=== PATIENT | female | born 1980 | race Hispanic/Latino ===

== ENCOUNTER 2016-04-15 08:05 | Emergency (ER) | payer SELFPAY ==
[2016-04-15 08:25] VITALS: TEMP 99.1
--- NOTE | 2016-04-15 08:30 | ED.PDOC ---
History of Present Illness - General Chief Complaint: Abdominal Pain Stated Complaint: abdominal discomfort Time Seen by Provider: 04/15/16 08:20 Information Source: patient, RN notes reviewed, Vital Signs reviewed Exam Limitations: no limitations - History of Present Illness Initial Comments: This 35 y/o female stated that after coming out from the rest room had bowel movement and urination she had onset of crampy abdominal pain mostly suprapubic area and radiating to right side and back felt nauseated ,denies blood in stool or urine.No dysuria or pain on defacation.No vaginal discharge ,no history of sexually transnitted infection. Abdominal Pain Onset Location: suprapubic Pain Radiation: RLQ, back Quality: cramping, steady Timing/Duration: 1/2 hour Improving Factors: nothing Worsening Factors: nothing Associated Symptoms: denies symptoms Review of Systems - Review of Systems Constitutional: States: no symptoms reported EENTM: States: no symptoms reported Respiratory: States: no symptoms reported Cardiology: States: no symptoms reported Gastrointestinal/Abdominal: States: see HPI Genitourinary: States: no symptoms reported Musculoskeletal: States: no symptoms reported Neurological: States: no symptoms reported Endocrine: States: no symptoms reported Hematologic/Lymphatic: States: no symptoms reported Past Medical History (General) - Patient Medical History Hx Seizures: No Hx Stroke: No Hx Dementia: No Hx Asthma: No Hx of COPD: No Hx Cardiac Disorders: No Hx Congestive Heart Failure: No Hx Pacemaker: No Hx Hypertension: No Hx Thyroid Disease: No Hx Diabetes: No Hx Gastroesophageal Reflux: No Hx Renal Disease: No Hx Cancer: No Hx of HIV: No Hx Hepatitis C: No Hx MRSA: No Hx Other PMH: Yes - stated diagnnosed with ovarian cyst Surgical History: other - vaginal deliveries - Vaccination History Hx Tetanus, Diphtheria Vaccination: No Hx Influenza Vaccination: No Hx Pneumococcal Vaccination: No - Social History Hx Tobacco Use: Yes Hx Chewing Tobacco Use: No Hx Alcohol Use: Yes - daily until 2 weeks ago Hx Substance Use: Yes - THC Hx Substance Use Treatment: No Hx Depression: No Hx Physical Abuse: No Hx Emotional Abuse: No Hx Suspected Abuse: No - Activities of Daily Living Patient Lives Alone: No - family - Female History Patient : No Family Medical History - Family History Mother Family History: Unknown Hx Family Asthma: Yes - dad Hx Family Hypertension: Yes - dad Father Living Status: Still Living Hx Family Asthma: Yes Hx Family Hypertension: Yes Physical Exam - Physical Exam General Appearance: Alert, Anxious, No apparent distress Eyes, Ears, Nose, Throat Exam: PERRL/EOMI, normal ENT inspection, TMs normal, pharynx normal Neck: non-tender, full range of motion, supple Respiratory: chest non-tender, lungs clear, normal breath sounds, no respiratory distress Cardiovascular/Chest: normal peripheral pulses, regular rate, rhythm, no edema, no gallop, no JVD, no murmur Peripheral Pulses: No deficit Gastrointestinal/Abdominal: normal bowel sounds, soft, tenderness - suprapubic and rlq no peritoneal signs Back Exam: normal inspection, no CVA tenderness, no vertebral tenderness Extremity: non-tender, normal inspection, no pedal edema Neurologic: no motor/sensory deficits, alert, normal mood/affect, oriented x 3 Skin Exam: normal color, warm/dry Lymphatic: no adenopathy Progress - Results/Orders Results/Orders: 04/15/16 08:36 HCG,QUALITATIVE URINE Stat 04/15/16 09:04 EKG Assessment ONCE 04/15/16 09:12 INFLUENZA A & B BY PCR Stat Laboratory Results WBC 9.3 K/mm3 (4.8-10.8) 04/15/16 08:50 RBC 4.05 M/mm3 (4.20-5.40) L 04/15/16 08:50 Hgb 13.1 gm/dL (12.0-16.0) 04/15/16 08:50 Hct 38.7 % (36.0-47.0) 04/15/16 08:50 MCV 95.5 fl (81.0-99.0) 04/15/16 08:50 MCH 32.3 pg (27.0-31.0) H 04/15/16 08:50 MCHC 33.9 g/dL (33.0-37.0) 04/15/16 08:50 RDW 13.2 % (11.5-14.5) 04/15/16 08:50 Plt Count 264 K/mm3 (130-400) 04/15/16 08:50 MPV 7.3 fl (7.40-10.4) L 04/15/16 08:50 Absolute Neuts (auto) 6.60 K/uL (1.8-6.8) 04/15/16 08:50 Absolute Lymphs (auto) 1.70 K/uL (1.0-3.4) 04/15/16 08:50 Absolute Monos (auto) 0.70 K/uL (0.2-0.8) 04/15/16 08:50 Absolute Eos (auto) 0.20 K/uL (0.0-0.4) 04/15/16 08:50 Absolute Basos (auto) 0.00 K/uL (0.0-0.1) 04/15/16 08:50 Neutrophils % 71.3 % (42.0-78.0) 04/15/16 08:50 Lymphocytes % 18.1 % (20.0-50.0) L 04/15/16 08:50 Monocytes % 7.6 % (2.0-9.0) 04/15/16 08:50 Eosinophils % 2.6 % (1.0-5.0) 04/15/16 08:50 Basophils % 0.4 % (0.0-2.0) 04/15/16 08:50 Sodium 136 mmol/L (135-145) 04/15/16 08:50 Potassium 3.8 mmol/L (3.6-5.0) 04/15/16 08:50 Chloride 104 mmol/L (101-111) 04/15/16 08:50 Carbon Dioxide 22 mmol/L (21-31) 04/15/16 08:50 Anion Gap 13.8 (12-18) 04/15/16 08:50 BUN 17 mg/dL (7-18) 04/15/16 08:50 Creatinine 0.69 mg/dL (0.6-1.3) 04/15/16 08:50 BUN/Creatinine Ratio 24.6 (10-20) H 04/15/16 08:50 Random Glucose 95 mg/dL (70-105) 04/15/16 08:50 Serum Osmolality 273.3 mOsm/L (275-295) L 04/15/16 08:50 Calcium 9.3 mg/dL (8.4-10.2) 04/15/16 08:50 Total Bilirubin 0.5 mg/dL (0.2-1.0) 04/15/16 08:50 AST 24 IU/L (10-42) 04/15/16 08:50 ALT 21 IU/L (10-60) 04/15/16 08:50 Alkaline Phosphatase 74 IU/L (42-121) 04/15/16 08:50 Serum Total Protein 7.1 gm/dL (6.4-8.2) 04/15/16 08:50 Albumin 4.2 g/dl (3.2-5.5) 04/15/16 08:50 Globulin 2.9 gm/dL (2.3-3.5) 04/15/16 08:50 Albumin/Globulin Ratio 1.4 (1.1-1.9) 04/15/16 08:50 Lipase 18 U/L (22-51) L 04/15/16 08:50 Urine Color Yellow (Yellow) 04/15/16 08:15 Urine Appearance Clear (Clear) 04/15/16 08:15 Urine pH 5.5 (4.5-7.8) 04/15/16 08:15 Ur Specific [place] >= 1.030 (1.005-1.030) 04/15/16 08:15 Urine Protein Trace mg/dL 04/15/16 08:15 Urine Glucose (UA) Negative mg/dL (Negative) 04/15/16 08:15 Urine Ketones Negative mg/dL (NEGATIVE) 04/15/16 08:15 Urine Blood Trace-lysed (Negative) H 04/15/16 08:15 Urine Nitrite Negative 04/15/16 08:15 Urine Bilirubin Negative (NEGATIVE) 04/15/16 08:15 Urine Urobilinogen 0.2 mg/dL (0.2-1.0) 04/15/16 08:15 Ur Leukocyte Esterase Negative (Negative) 04/15/16 08:15 Urine RBC 0-1 /hpf 04/15/16 08:15 Urine WBC 0 /hpf 04/15/16 08:15 Ur Epithelial Cells 5-10 /hpf 04/15/16 08:15 Urine Bacteria 0 04/15/16 08:15 ABDOMINAL SONO- NO ACUTE ABNORMALITIES NOTED;CT abd/pelvis with contrast no acute abnormality noted Departure - Departure Clinical Impression: Abdominal pain, suprapubic Time of Disposition: 12:27 Disposition: Discharge to Home or Self Care Condition: Good Departure Forms: ED Discharge - Pt. Copy, Patient Portal Self Enrollment Instructions: DI for Abdominal Pain-Adult Prescriptions: Tramadol HCl 50 mg PO Q6HRS PRN #14 tab PRN Reason: Abdominal Cramping Dicyclomine HCl [Bentyl] 20 mg PO TID PRN #14 tab PRN Reason: Abdominal Cramping Home Medications: Ambulatory Orders Dicyclomine HCl [Bentyl] 20 mg PO TID PRN #14 tab 04/15/16 Tramadol HCl 50 mg PO Q6HRS PRN #14 tab 04/15/16 Additional Instructions: CLEAR LIQUIDS FOR TODAY THEN TO ADVANCE DIET TOLERATED;AVOID GREASY AND SPICY FOODS UNTIL BETTER;PLEASE EXCUSE FROM WORK 04/15- was ill;RETURN TO WORK WITHOUT RESTRICTIONS 04/17/2016.
[2016-04-15] MEDS ORDERED: SODIUM CHLORIDE 0.9% 10 ML VIAL ONE (08:59)
[2016-04-15] MEDS: LACTATED RINGERS 1,000 ML IVS ONE (09:20)
[2016-04-15] MEDS: MORPHINE SULFATE INJ 10 MG/ML VIAL IV ONE (09:20)
[2016-04-15] MEDS: PROMETHAZINE HCL INJ 25 MG/ML VIAL IM ONE (09:21)
--- NOTE | 2016-04-15 09:23 | US ---
EXAM DESCRIPTION: Abdomen sonogram CLINICAL HISTORY: Abdomen pain COMPARISON: None. FINDINGS: Gallbladder is normal . Gallbladder wall thickness 2 mm Common bile duct measures 4 mm in the fatemeh hepatis. Liver is normal in size and echotexture. No mass lesion Pancreas is normal. No duct dilation. Spleen normal measuring 7 cm craniocaudal. Visualized abdominal aorta and inferior vena cava are normal Right kidney and left kidney are normal in size and echotexture. No hydronephrosis, nephrolithiasis or renal mass lesion IMPRESSION: Normal abdomen sonogram Electronically signed by: Gustavo Wilson MD 04/15/2016 09:21
--- NOTE | 2016-04-15 11:47 | CT ---
EXAM DESCRIPTION: CT ABDOMEN PELVIS WITH IV CONTRAST CLINICAL HISTORY: pain COMPARISON: November 30, 2015. Abdomen ultrasound today TECHNIQUE: Post-contrast CT images of the abdomen and pelvis are obtained using standard imaging protocol. CT scan done according to ALARA (As Low As Reasonably Achievable). FINDINGS: Visualized lung bases show no acute findings. The liver, spleen comma pancreas, adrenal glands, gallbladder, and abdominal vasculature are unremarkable. Stomach is contracted and unremarkable. 12 mm cortical cyst of the lateral midpole right kidney with increased Hounsfield units suggesting proteinaceous or hemorrhagic cyst. No significant nephrolithiasis. No ureteral calcification or obstruction. Urinary bladder is unremarkable. The uterus and ovaries are unremarkable. Small amount of probably physiologic free fluid in the pelvic cul-de-sac. The appendix is normal. No small bowel obstruction or inflammation. Colon is unremarkable. No significant diverticular disease is appreciated. No free intraperitoneal air. Small fat containing umbilical hernia is stable. Osseous structures show no aggressive bony lesions. IMPRESSION: No acute findings on post-contrast CT of the abdomen and pelvis. Electronically signed by: Nikolai Patel MD 04/15/2016 11:45
[2016-04-15 12:26] VITALS: BP 126/84; O2SAT 96
== END 2016-04-15 12:53 | disposition home or self-care (01) ==
LOC: ER 08:05
DX: R10.30 Lower abdominal pain, unspecified (principal); Z87.891 Personal history of nicotine dependence
CPT/HCPCS: 36415; 74177; 76700; 80053; 81001; 81025; 83690; 85025; 87502; 93005; J2270; J2550; J7120

== ENCOUNTER 2016-06-22 16:53 | Emergency (ER) | payer SELFPAY ==
--- NOTE | 2016-06-22 18:03 | ED.PDOC ---
History of Present Illness - General Source: patient, RN notes reviewed, Vital Signs reviewed Exam Limitations: no limitations - History of Present Illness Initial Comments: Patient reports that this morning about 5:30am she started vomiting and not feeling well. As the day went on she developed pelvic pain that is worse than a period cramp. Pain is worsened by urinating, coughing or having a bowel movement. No fever. + chills. No further nausea or vomiting. No vaginal discharge or bleeding. Timing/Duration: intermittent - over past 12 hours Severity: moderate Improving Factors: nothing Worsening Factors: movement, other - coughing, urinating, bowel movement Associated Symptoms: fever/chills, malaise, nausea/vomiting <Pauline Chavez - Last Filed: 06/22/16 19:05> <Ling Elkins - Last Filed: 06/22/16 20:01> - General Chief Complaint: [employer]IVE [employer] REPA[employer]ER Problem Stated Complaint: vaginal pressure Time Seen by Provider: 06/22/16 17:52 - History of Present Illness Allergies/Adverse Reactions: Allergies NO KNOWN ALLERGY Allergy (Verified 06/22/16 17:51) Home Medications: Ambulatory Orders Hyoscyamine Sulfate [Levsin] 0.125 mg PO Q4H PRN #10 tab 06/22/16 Review of Systems - Review of Systems Constitutional: States: chills, malaise. Denies: diaphoresis, fever Respiratory: States: no symptoms reported Cardiology: States: no symptoms reported Gastrointestinal/Abdominal: States: see HPI Genitourinary: States: see HPI, pain. Denies: dysuria Musculoskeletal: States: no symptoms reported Skin: States: no symptoms reported Neurological: States: no symptoms reported. Denies: headache All other Systems: No Change from Baseline <Pauline Chavez - Last Filed: 06/22/16 19:05> Past Medical History (General) - Patient Medical History Hx Seizures: No Hx Stroke: No Hx Dementia: No Hx Asthma: No Hx of COPD: No Hx Cardiac Disorders: No Hx Congestive Heart Failure: No Hx Pacemaker: No Hx Hypertension: No Hx Thyroid Disease: No Hx Diabetes: No Hx Gastroesophageal Reflux: No Hx Renal Disease: No Hx Cancer: No Hx of HIV: No Hx Hepatitis C: No Hx MRSA: No Surgical History: other - Vaccination History Hx Tetanus, Diphtheria Vaccination: No Hx Influenza Vaccination: No Hx Pneumococcal Vaccination: No - Social History Hx Tobacco Use: Yes Hx Chewing Tobacco Use: No Hx Alcohol Use: Yes Hx Substance Use: Yes - THC Hx Substance Use Treatment: No Hx Depression: No Hx Physical Abuse: No Hx Emotional Abuse: No Hx Suspected Abuse: No - Activities of Daily Living Hospice Agency (if applicable):: None - Female History Patient is a Female of Child Bearing Age (10 -59 yrs old): No Patient : No <Pauline Chavez - Last Filed: 06/22/16 19:05> Family Medical History - Family History Mother Family History: Unknown Living Status: Still Living Hx Family Asthma: Yes - dad Hx Family Hypertension: Yes - dad Father Living Status: Still Living Hx Family Asthma: Yes Hx Family Hypertension: Yes <Pauline Chavez Last Filed: 06/22/16 19:05> Physical Exam - Physical Exam General Appearance: Alert, No apparent distress, Well Developed, Well Groomed, Well Hydrated, Well Nourished, Other - Uncomfortable Respiratory: chest non-tender, lungs clear, normal breath sounds, no respiratory distress, no accessory muscle use Cardiovascular/Chest: regular rate, rhythm, no gallop, no JVD, no murmur Gastrointestinal/Abdominal: normal bowel sounds, soft, no organomegaly, rebound - over RLQ, tenderness - RLQ and suprapubic Extremity: normal range of motion, non-tender, normal inspection Neurologic: no motor/sensory deficits, alert, normal mood/affect, oriented x 3 Skin Exam: normal color, warm/dry <KathyPauline - Last Filed: 06/22/16 19:05> Progress - Progress Progress: 06/22/16 19:[address] Elkins @ 1904 <KathyPauline Last Filed: 06/22/16 19:05> - Results/Orders Results/Orders: 06/22/16 17:42 Temperature 98.5 F Pulse Rate [ 75 pulse ox] Respiratory 20 Rate Blood Pressure 107/73 [Left Arm] O2 Sat by Pulse 94 L Oximetry 06/22/16 18:00 IV Care:Saline Lock per Protoc QSHIFT 06/22/16 18:01 Hold Metformin x 48Hrs [id number] Laboratory Results WBC 8.0 K/mm3 (4.8-10.8) 06/22/16 18:10 RBC 4.33 M/mm3 (4.20-5.40) 06/22/16 18:10 Hgb 14.4 gm/dL (12.0-16.0) 06/22/16 18:10 Hct 41.7 % (36.0-47.0) 06/22/16 18:10 MCV 96.3 fl (81.0-99.0) 06/22/16 18:10 MCH 33.2 pg (27.0-31.0) H 06/22/16 18:10 MCHC 34.5 g/dL (33.0-37.0) 06/22/16 18:10 RDW 12.9 % (11.5-14.5) 06/22/16 18:10 Plt Count 272 K/mm3 (130-400) 06/22/16 18:10 MPV 7.6 fl (7.40-10.4) 06/22/16 18:10 Absolute Neuts (auto) 5.20 K/uL (1.8-6.8) 06/22/16 18:10 Absolute Lymphs (auto) 2.00 K/uL (1.0-3.4) 06/22/16 18:10 Absolute Monos (auto) 0.60 K/uL (0.2-0.8) 06/22/16 18:10 Absolute Eos (auto) 0.10 K/uL (0.0-0.4) 06/22/16 18:10 Absolute Basos (auto) 0.00 K/uL (0.0-0.1) 06/22/16 18:10 Neutrophils % 65.0 % (42.0-78.0) 06/22/16 18:10 Lymphocytes % 24.7 % (20.0-50.0) 06/22/16 18:10 Monocytes % 8.1 % (2.0-9.0) 06/22/16 18:10 Eosinophils % 1.7 % (1.0-5.0) 06/22/16 18:10 Basophils % 0.5 % (0.0-2.0) 06/22/16 18:10 Sodium 136 mmol/L (135-145) 06/22/16 18:10 Potassium 3.7 mmol/L (3.6-5.0) 06/22/16 18:10 Chloride 103 mmol/L (101-111) 06/22/16 18:10 Carbon Dioxide 25 mmol/L (21-31) 06/22/16 18:10 Anion Gap 11.7 (12-18) L 06/22/16 18:10 BUN 8 mg/dL (7-18) 06/22/16 18:10 Creatinine 0.60 mg/dL (0.6-1.3) 06/22/16 18:10 BUN/Creatinine Ratio 13.3 (10-20) 06/22/16 18:10 Random Glucose 94 mg/dL (70-105) 06/22/16 18:10 Serum Osmolality 270.0 mOsm/L (275-295) L 06/22/16 18:10 Calcium 9.4 mg/dL (8.4-10.2) 06/22/16 18:10 Total Bilirubin 0.6 mg/dL (0.2-1.0) 06/22/16 18:10 AST 23 IU/L (10-42) 06/22/16 18:10 ALT 21 IU/L (10-60) 06/22/16 18:10 Alkaline Phosphatase 72 IU/L (42-121) 06/22/16 18:10 Serum Total Protein 8.1 gm/dL (6.4-8.2) 06/22/16 18:10 Albumin 4.9 g/dl (3.2-5.5) 06/22/16 18:10 Globulin 3.2 gm/dL (2.3-3.5) 06/22/16 18:10 Albumin/Globulin Ratio 1.5 (1.1-1.9) 06/22/16 18:10 Urine Color Yellow (Yellow) 06/22/16 18:00 Urine Appearance Clear (Clear) 06/22/16 18:00 Urine pH 7.0 (4.5-7.8) 06/22/16 18:00 Ur Specific [place] 1.020 (1.005-1.030) 06/22/16 18:00 Urine Protein Negative mg/dL 06/22/16 18:00 Urine Glucose (UA) Negative mg/dL (Negative) 06/22/16 18:00 Urine Ketones Negative mg/dL (NEGATIVE) 06/22/16 18:00 Urine Blood Trace-intact (Negative) H 06/22/16 18:00 Urine Nitrite Negative 06/22/16 18:00 Urine Bilirubin Negative (NEGATIVE) 06/22/16 18:00 Urine Urobilinogen 0.2 mg/dL (0.2-1.0) 06/22/16 18:00 Ur Leukocyte Esterase Negative (Negative) 06/22/16 18:00 Urine RBC 0-1 /hpf 06/22/16 18:00 Urine WBC 0 /hpf 06/22/16 18:00 Ur Epithelial Cells 0-1 /hpf 06/22/16 18:00 Urine Bacteria 0 06/22/16 18:00 Urine HCG, Qual Negative 06/22/16 18:10 - EKG/XRAY/CT CT: abd/pelv: No acute process <Ling Elkins - Last Filed: 06/22/16 20:01> Departure <Pauline Chavez - Last Filed: 06/22/16 19:05> - Departure Time of Disposition: 19:55 Diet: bland diet <Ling Elkins - Last Filed: 06/22/16 20:01> - Departure Clinical Impression: Gastroenteritis, Spasm of colon Disposition: Discharge to Home or Self Care Condition: Fair Departure Forms: ED Discharge - Pt. Copy, Patient Portal Self Enrollment Instructions: Viral Gastroenteritis, DI for Viral Gastroenteritis -- Adult, Gastroenteritis Diet Prescriptions: Hyoscyamine Sulfate [Levsin] 0.125 mg PO Q4H PRN #10 tab PRN Reason: Abdominal Cramping Home Medications: Ambulatory Orders Hyoscyamine Sulfate [Levsin] 0.125 mg PO Q4H PRN #10 tab 06/22/16 Additional Instructions: Follow up with PCP if symptoms persist or ED if symptoms worsen or for any fever , further vomiting.
--- NOTE | 2016-06-22 19:05 | CT ---
PROCEDURE: Abdomen/Pelvis w/Contrast HISTORY: Pelvic pain Indication: Same as above Comparison: April 15, 2016 . Technique: CT of the abdomen and pelvis was done with intravenous contrast. Images were obtained from the lung base to the level of the pubic symphysis in axial plane, followed by orthogonal sagittal and coronal reconstruction. Oral contrast was not given for the study. The patient was injected with contrast intravenously, without any documented immediate adverse reactions. This exam was performed according to our departmental dose-optimization program, which includes automated exposure control, adjustment of the mA and/or KV according to the patient's size and/or use of iterative reconstruction technique. FINDINGS: Images through the lung bases do not show any focal infiltrates or pleural effusions. There is a small hiatal hernia The liver, gallbladder, pancreas, spleen and the bilateral adrenal glands appear unremarkable. A benign exophytic cortical cyst is seen in the lateral midpole of the right kidney. The bilateral kidneys otherwise enhance with contrast in a normal fashion. The urinary bladder is unremarkable . The bilateral ureters and the bilateral periureteral soft tissues and fat planes are unremarkable. The small bowel appears unremarkable, without any evidence of small bowel obstruction or bowel wall thickening. There is no CT evidence of acute appendicitis, pericecal inflammatory change or ileocecal mesenteric adenitis. The ileocecal junction appears unremarkable. There is no CT evidence of acute colonic diverticulitis or colitis or large bowel obstruction. The splenic and portal veins are of normal caliber, without any filling defects. There is no pathological lymphadenopathy in the retroperitoneum or in the pelvic region. There is no evidence of free fluid or free air in the abdomen or the pelvic region. There is no clinically significant abdominal aortic aneurysm. There is a small fat-containing periumbilical ventral hernia defect. An anteverted uterus is noted. Benign bilateral ovarian follicles are noted The visualized lumbar spine is unremarkable . The paravertebral soft tissues are unremarkable. The remainder of the pelvic structures are unremarkable. IMPRESSION: There are no acute findings on the current study Note is made of small fat-containing periumbilical ventral hernia defect and a small hiatal hernia. Electronically signed by: Silvio Addison MD 06/22/2016 7:04 PM CDT
[2016-06-22] MEDS ORDERED: HYOSCYAMINE SULFATE 0.125 MG TAB PO PRN (19:58)
[2016-06-22 20:15] VITALS: BP 116/83; TEMP 97.9; O2SAT 98
== END 2016-06-22 20:16 | disposition home or self-care (01) ==
LOC: ER 16:53
DX: K52.9 Noninfective gastroenteritis and colitis, unspecified (principal); K58.9 Irritable bowel syndrome, unspecified; Z87.891 Personal history of nicotine dependence

== ENCOUNTER 2016-09-15 09:09 | Emergency (ER) | payer SELFPAY ==
[2016-09-15 09:36] VITALS: TEMP 97.4
--- NOTE | 2016-09-15 09:37 | ED.PDOC ---
History of Present Illness - General Chief Complaint: Abdominal Pain Stated Complaint: abdominal pain Time Seen by Provider: 09/15/16 09:31 Information Source: patient, RN notes reviewed, Vital Signs reviewed Exam Limitations: no limitations - History of Present Illness Initial Comments: Patient comes in with c/o severe lower abdominal pain that started this morning when she woke up. She does report not feeling well yesterday with one episode of vomiting yesterday. Also, she was woken several times through the night with sharp, stabbing pains but quickly went back to sleep. Today she describes the pain as pressure. Pain is worse with movement. Normal bowel movement this morning but lots of pain with bowel movement. Denies urinary symptoms. She is sexually active but has had a tubal ligation. No fever, + chills Abdominal Pain Onset Location: LLQ, suprapubic Pain Radiation: other - rectum Quality: severe, sharpness, stabbing, other - pressure Timing/Duration: 1-3 hours Improving Factors: nothing Worsening Factors: movement Associated Symptoms: fever/chills, nausea/vomiting Review of Systems - Review of Systems Constitutional: States: chills. Denies: fever, malaise, weakness Respiratory: States: no symptoms reported Cardiology: States: no symptoms reported Gastrointestinal/Abdominal: States: see HPI Genitourinary: States: no symptoms reported Musculoskeletal: States: no symptoms reported Skin: States: no symptoms reported Neurological: States: no symptoms reported All other Systems: No Change from Baseline Past Medical History (General) - Patient Medical History Hx Seizures: No Hx Stroke: No Hx Dementia: No Hx Asthma: No Hx of COPD: No Hx Cardiac Disorders: No Hx Congestive Heart Failure: No Hx Pacemaker: No Hx Hypertension: No Hx Thyroid Disease: No Hx Diabetes: No Hx Gastroesophageal Reflux: No Hx Renal Disease: No Hx Cancer: No Hx of HIV: No Hx Hepatitis C: No Hx MRSA: No - Vaccination History Hx Tetanus, Diphtheria Vaccination: No Hx Influenza Vaccination: No Hx Pneumococcal Vaccination: No - Social History Hx Tobacco Use: Yes Hx Chewing Tobacco Use: No Hx Alcohol Use: Yes Hx Substance Use: Yes - THC Hx Substance Use Treatment: No Hx Depression: No Hx Physical Abuse: No Hx Emotional Abuse: No Hx Suspected Abuse: No - Female History Patient : No Family Medical History - Family History Mother Family History: Unknown Living Status: Still Living Hx Family Asthma: Yes - dad Hx Family Hypertension: Yes - dad Father Living Status: Still Living Hx Family Asthma: Yes Hx Family Hypertension: Yes Physical Exam - Physical Exam General Appearance: Alert, Obvious distress - In obvious pain, Ill Appearing, Well Developed, Well Groomed, Well Hydrated, Well Nourished Neck: non-tender, full range of motion, supple, normal inspection Respiratory: lungs clear, normal breath sounds, no respiratory distress, no accessory muscle use Cardiovascular/Chest: regular rate, rhythm, no edema, no gallop, no JVD, no murmur Gastrointestinal/Abdominal: soft, no organomegaly, no pulsatile mass, abnormal bowel sounds - Hypoactive, guarding - LLQ, rebound - LLQ, tenderness - LLQ & suprapubic Pelvic Exam: discharge - GC/Chl sab taken, tender w/ cervical motion Extremity: normal range of motion, non-tender, normal inspection, no pedal edema Neurologic: alert, normal mood/affect, oriented x 3 Skin Exam: normal color, warm/dry Progress - Progress Progress: 09/15/16 10:47 Pain is improved with medication. Awaiting Radiologist report of CT 09/15/16 11:28 Discussed pelvic inflammatory disease with patient. Advised her partner needs to get testing and treatment. 09/15/16 11:29 Gave Rocephin 250mg IM, Doxycycline 100mg PO and Flagyl 500mg PO - Results/Orders Results/Orders: Laboratory Tests 09/15/16 09/15/16 09/15/16 09:31 09:45 09:45 WBC 8.2 RBC 4.02 L Hgb 13.3 Hct 38.4 MCV 95.4 MCH 33.0 H MCHC 34.7 RDW 12.9 Plt Count 262 MPV 7.6 Absolute Neuts (auto) 5.30 Absolute Lymphs (auto) 1.80 Absolute Monos (auto) 0.70 Absolute Eos (auto) 0.40 Absolute Basos (auto) 0.00 Neutrophils % 64.2 Lymphocytes % 22.3 Monocytes % 8.7 Eosinophils % 4.3 Basophils % 0.5 Sodium 138 Potassium 3.7 Chloride 107 Carbon Dioxide 23 Anion Gap 11.7 L BUN 13 Creatinine 0.64 BUN/Creatinine Ratio 20.3 H Random Glucose 98 Serum Osmolality 275.8 Calcium 9.2 Total Bilirubin 0.6 AST 17 ALT 19 Alkaline Phosphatase 63 Serum Total Protein 6.8 Albumin 4.2 Globulin 2.6 Albumin/Globulin Ratio 1.6 Urine Color Urine Appearance Urine pH Ur Specific [place] Urine Protein Urine Glucose (UA) Urine Ketones Urine Blood Urine Nitrite Urine Bilirubin Urine Urobilinogen Ur Leukocyte Esterase Urine RBC Urine WBC Ur Epithelial Cells Urine Bacteria Urine HCG, Qual Negative 09/15/16 09:46 WBC RBC Hgb Hct MCV MCH MCHC RDW Plt Count MPV Absolute Neuts (auto) Absolute Lymphs (auto) Absolute Monos (auto) Absolute Eos (auto) Absolute Basos (auto) Neutrophils % Lymphocytes % Monocytes % Eosinophils % Basophils % Sodium Potassium Chloride Carbon Dioxide Anion Gap BUN Creatinine BUN/Creatinine Ratio Random Glucose Serum Osmolality Calcium Total Bilirubin AST ALT Alkaline Phosphatase Serum Total Protein Albumin Globulin Albumin/Globulin Ratio Urine Color Yellow Urine Appearance Clear Urine pH 5.5 Ur Specific [place] >= 1.030 Urine Protein Negative Urine Glucose (UA) Negative Urine Ketones Negative Urine Blood Trace-intact H Urine Nitrite Negative Urine Bilirubin Small H Urine Urobilinogen 0.2 Ur Leukocyte Esterase Negative Urine RBC 0-1 Urine WBC 0 Ur Epithelial Cells 40-50 Urine Bacteria Rare Urine HCG, Qual - EKG/XRAY/CT CT Ordered: Yes - Abd/Pel: No acute findings per Radiologist Departure - Departure Clinical Impression: Pelvic inflammatory disease, acute Time of Disposition: 11:50 Disposition: Discharge to Home or Self Care Condition: Good Departure Forms: ED Discharge - Pt. Copy, Patient Portal Self Enrollment Instructions: DI for Pelvic Inflammatory Disease Diet: resume usual diet Activity: increase activity as tolerated Prescriptions: Acetamin W/Cod #3 Tab [Tylenol w/CODEINE #3] 1 ea PO Q6HR PRN #12 tab PRN Reason: Moderate To Severe Pain Doxycycline Hyclate 100 mg PO BID #28 cap Metronidazole 500 mg PO BID #28 tab Home Medications: Ambulatory Orders Acetamin W/Cod #3 Tab [Tylenol w/CODEINE #3] 1 ea PO Q6HR PRN #12 tab 09/15/16 Doxycycline Hyclate 100 mg PO BID #28 cap 09/15/16 Metronidazole 500 mg PO BID #28 tab 09/15/16 Additional Instructions: Follow up with PCP Partner needs to be tested and treated for STD
[2016-09-15] MEDS: ONDANSETRON INJ 4 MG/2 ML VIAL IV ONE (09:47)
[2016-09-15] MEDS: HYDROmorphone HCL INJ 2 MG/ML VIAL IV ONE (09:47)
[2016-09-15] MEDS: SODIUM CHLORIDE 0.9% 1000ML 1,000 ML IVS ONE (09:47)
--- NOTE | 2016-09-15 10:50 | CT ---
EXAM DESCRIPTION: Abdomen/Pelvis w/Contrast CLINICAL HISTORY: LLQ abd/rectal pain COMPARISON: June 22, 2016 TECHNIQUE: Postcontrast CT imaging of the abdomen and pelvis are obtained. This exam was performed according to our departmental dose-optimization program, which includes automated exposure control, adjustment of the mA and/or kV according to patient size and/or use of iterative reconstruction technique . FINDINGS: The visualized lung bases are unremarkable. There is mild soft tissue thickening at the gastroesophageal junction which could represent small hiatal hernia. Consider correlation with upper GI examination or endoscopy. Liver, spleen, pancreas, adrenal glands, gallbladder, and abdominal vasculature is unremarkable. Stable small fat-containing umbilical hernia seen. Kidneys show no significant nephrolithiasis. No ureteral obstruction. Simple cortical cyst of the upper pole right kidney is stable from previous. Urinary bladder is contracted and not evaluated. The uterus and left ovary are unremarkable. There is a dominant follicle of the right ovary measuring 2.4 cm. The amount of probably physiologic free fluid in the right pelvic cul-de-sac is seen. The appendix is identified and appears unremarkable. No small bowel obstruction is seen. Colon is unremarkable. Mild diverticuli of the sigmoid colon without associated inflammatory changes or fluid collections are seen. No abnormality in the anorectal region is seen on CT imaging. The osseous structures show no aggressive bony lesions. IMPRESSION: No acute findings on CT of the abdomen and pelvis. Mild colon diverticulosis without CT evidence of diverticulitis. Stable fat-containing umbilical hernia. Question small hiatal hernia is described above. Electronically signed by: Nikolai Patel MD 09/15/2016 10:44 AM CDT
[2016-09-15 10:52] VITALS: BP 96/69
[2016-09-15] MEDS ORDERED: LIDOCAINE 1% 10 ML VIAL INJ ONE (11:36)
[2016-09-15] MEDS: metroNIDAZOLE 500 MG TAB PO ONE (11:40)
[2016-09-15] MEDS: DOXYCYCLINE HYCLATE CAP 100 MG CAP PO ONE (11:40)
[2016-09-15 11:50] VITALS: O2SAT 97
== END 2016-09-15 11:55 | disposition home or self-care (01) ==
LOC: ER 09:09
DX: N73.9 Female pelvic inflammatory disease, unspecified (principal); Z87.891 Personal history of nicotine dependence
CPT/HCPCS: 36415; 74177; 80053; 81001; 81025; 85025; 87210; 87491; 87591; J0696; J1170; J2405; J7030

== ENCOUNTER 2017-06-27 07:59 | Emergency (ER) | payer SELFPAY ==
[2017-06-27 08:11] VITALS: TEMP 98.5; O2SAT 98
[2017-06-27] MEDS: ONDANSETRON ODT 8 MG TAB SL ONE (08:38)
[2017-06-27] MEDS: SODIUM CHLORIDE 0.9% 1000ML 1,000 ML IVS ONE (08:38)
--- NOTE | 2017-06-27 09:33 | RAD ---
EXAM DESCRIPTION: Abdomen Series CLINICAL HISTORY: 37 years Female, nv 1 week COMPARISON: None. FINDINGS: The cardiomediastinal silhouette is unremarkable. No airspace consolidation or pleural effusion. No free subdiaphragmatic gas or intra-abdominal air-fluid level. The bowel gas pattern is nonobstructive. Several small pelvic calcifications probably represent phleboliths. The liver is at the upper limits of normal size. No concerning bone lesion. IMPRESSION: Upper normal liver size, but no obstruction or other acute intra-abdominal abnormality. Electronically signed by: Meliton Rendon MD 06/27/2017 9:31 AM CDT
--- NOTE | 2017-06-27 09:58 | ED.PDOC ---
History of Present Illness - General Chief Complaint: GI Problem Stated Complaint: Unable to keep food down, stomach burning Time Seen by Provider: 06/27/17 08:08 Source: patient Exam Limitations: no limitations - History of Present Illness Initial Comments: the patient's 37-year-old female presenting to the emergency room secondary to intermittent nausea and vomiting over the last week. She has had several similar episodes over the last couple of years when looking back over her ER history. No history of any pancreatitis or gallbladder problems in the past. She reports that she is not . She is mainly having some nausea when she eats. She has epigastric discomfort when she eats. No vomiting of blood. No passage of blood or melena in the stool. Mild diarrhea. She holds down liquids well but not solids. Sometimes she throws up immediately sometimes it' s 30-40 minutes after she eats that she throws up. Exam shows the patient is mildly dehydrated. She does have epigastric discomfort palpation but no definite palpable mass. No definite rebound or peritoneal signs. No abdominal bruising. She does have a small reducible umbilical hernia. She reports that she has had a history of significant urinary tract infection in the past. No urinary symptoms currently. No flank pain. She does not take any daily medicines and has not used any antimetics. Timing/Duration: 1 week Severity: moderate Improving Factors: nothing Worsening Factors: eating Associated Symptoms: loss of appetite, malaise, nausea/vomiting Allergies/Adverse Reactions: Allergies NO KNOWN ALLERGY Allergy (Verified 09/15/16 09:36) Home Medications: Ambulatory Orders NK [NK] 06/27/17 Review of Systems - Review of Systems Constitutional: States: malaise, weakness EENTM: States: no symptoms reported Respiratory: States: no symptoms reported Cardiology: States: no symptoms reported Gastrointestinal/Abdominal: States: abdominal pain, diarrhea, nausea, vomiting Genitourinary: States: no symptoms reported Musculoskeletal: States: no symptoms reported Skin: States: no symptoms reported Neurological: States: no symptoms reported Endocrine: States: no symptoms reported All other Systems: No Change from Baseline Past Medical History (General) - Patient Medical History Hx Seizures: No Hx Stroke: No Hx Dementia: No Hx Asthma: No Hx of COPD: No Hx Cardiac Disorders: No Hx Congestive Heart Failure: No Hx Pacemaker: No Hx Hypertension: No Hx Thyroid Disease: No Hx Diabetes: No Hx Gastroesophageal Reflux: No Hx Renal Disease: No Hx Cancer: No Hx of HIV: No Hx Hepatitis C: No Hx MRSA: No Surgical History: other - Vaccination History Hx Tetanus, Diphtheria Vaccination: No Hx Influenza Vaccination: No Hx Pneumococcal Vaccination: No - Social History Hx Tobacco Use: Yes Hx Chewing Tobacco Use: No Hx Alcohol Use: Yes Hx Substance Use: Yes - THC Hx Substance Use Treatment: No Hx Depression: No Hx Physical Abuse: No Hx Emotional Abuse: No Hx Suspected Abuse: No - Female History Patient is a Female of Child Bearing Age (10 -59 yrs old): Yes Patient : No Family Medical History - Family History Mother Family History: Unknown Living Status: Still Living Hx Family Asthma: Yes - dad Hx Family Hypertension: Yes - dad Father Living Status: Still Living Hx Family Asthma: Yes Hx Family Hypertension: Yes Physical Exam - Physical Exam General Appearance: Alert, Comfortable, No apparent distress Eye Exam: bilateral normal Ears, Nose, Throat: hearing grossly normal, normal ENT inspection, normal pharynx Neck: full range of motion, supple Respiratory: lungs clear, normal breath sounds, no respiratory distress, no accessory muscle use Cardiovascular/Chest: normal peripheral pulses, regular rate, rhythm, no edema Peripheral Pulses: radial,right: 2+, radial,left: 2+, dorsalis pedis,right: 2+, dorsalis pedis,left: 2+ Gastrointestinal/Abdominal: soft, other - see history of present illness. 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 The patient left before her evaluation could be completed or she could be given any of the results from what has come back. She has not given a urinalysis. Her TSH is mildly elevated. She was given some IV fluids and nausea medications while here. She left AGAINST MEDICAL ADVICE. I suspect that the patient simply has a significant gastritis and would benefit from acid reducing medications as well as some nausea medicines and possibly a low-dose of Synthroid. She did however leave before this could be conveyed. The patient left AGAINST MEDICAL ADVICE. - Results/Orders Results/Orders: acute abdominal series shows no evidence of obstruction or free air. No evidence of any ileus. Laboratory Tests 06/27/17 06/27/17 06/27/17 08:31 08:31 08:31 WBC 8.0 RBC 4.04 L Hgb 13.6 Hct 38.8 MCV 95.9 MCH 33.6 H MCHC 35.1 RDW 13.0 Plt Count 269 MPV 7.9 Absolute Neuts (auto) 4.70 Absolute Lymphs (auto) 2.00 Absolute Monos (auto) 0.80 Absolute Eos (auto) 0.50 H Absolute Basos (auto) 0.00 Neutrophils % 58.6 Lymphocytes % 24.5 Monocytes % 9.9 H Eosinophils % 6.4 H Basophils % 0.6 PT 10.9 INR 0.940 PTT (SP) 32.3 Sodium 137 Potassium 3.5 L Chloride 106 Carbon Dioxide 24 Anion Gap 10.5 L BUN 13 Creatinine 0.74 BUN/Creatinine Ratio 17.6 Random Glucose 92 Serum Osmolality 273.6 L Lactic Acid Calcium 9.1 Magnesium 1.8 Total Bilirubin 0.6 AST 16 ALT 16 Alkaline Phosphatase 57 Creatine Kinase 61 CK-MB (CK-2) 1.4 CK-MB (CK-2) % Not Reportable Troponin I < 0.02 Serum Total Protein 7.0 Albumin 3.9 Globulin 3.1 Albumin/Globulin Ratio 1.3 Amylase 85 Lipase 49 TSH 9.73 H Serum HCG, Qual 06/27/17 06/27/17 08:31 08:31 WBC RBC Hgb Hct MCV MCH MCHC RDW Plt Count MPV Absolute Neuts (auto) Absolute Lymphs (auto) Absolute Monos (auto) Absolute Eos (auto) Absolute Basos (auto) Neutrophils % Lymphocytes % Monocytes % Eosinophils % Basophils % PT INR PTT (SP) Sodium Potassium Chloride Carbon Dioxide Anion Gap BUN Creatinine BUN/Creatinine Ratio Random Glucose Serum Osmolality Lactic Acid 0.9 Calcium Magnesium Total Bilirubin AST ALT Alkaline Phosphatase Creatine Kinase CK-MB (CK-2) CK-MB (CK-2) % Troponin I Serum Total Protein Albumin Globulin Albumin/Globulin Ratio Amylase Lipase TSH Serum HCG, Qual Negative Departure - Departure Clinical Impression: Dehydration, mild Gastritis Qualifiers: Gastritis type: unspecified gastritis Chronicity: acute Gastritis bleeding: without bleeding Qualified Code(s): K29.00 - Acute gastritis without bleeding Hypothyroidism Qualifiers: Hypothyroidism type: unspecified Qualified Code(s): E03.9 - Hypothyroidism, unspecified Disposition: Left Against Medical Advice Condition: Fair Departure Forms: ED Discharge - Pt. Copy, Patient Portal Self Enrollment Instructions: DI for Gastroesophageal Reflux Disease (GERD), DI for Gastritis Diet: bland diet Activity: increase activity as tolerated Home Medications: Ambulatory Orders NK [NK] 06/27/17
[2017-06-27 10:57] VITALS: BP 115/76
== END 2017-06-27 10:57 | disposition left against medical advice (07) ==
LOC: ER 07:59
DX: K29.00 Acute gastritis without bleeding (principal); E86.0 Dehydration; E03.9 Hypothyroidism, unspecified; K42.9 Umbilical hernia without obstruction or gangrene; Z87.891 Personal history of nicotine dependence
CPT/HCPCS: 36415; 74019; 80053; 81001; 82150; 82550; 82553; 83605; 83690; 83735; 84443; 84484; 84703; 85025; 85610; 85730; J7030

== ENCOUNTER 2017-07-24 11:54 | Emergency (ER) | payer SELFPAY ==
[2017-07-24 12:04] VITALS: TEMP 96.7
[2017-07-24] MEDS ORDERED: PROMETHAZINE HCL INJ 12.5 MG in SODIUM CHLORIDE 0.9% 50ML 50 ML IVPB ONE (12:08)
[2017-07-24] MEDS ORDERED: PANTOPRAZOLE SODIUM IV 40 MG VIAL IV ONE (12:08)
[2017-07-24] MEDS ORDERED: SODIUM CHLORIDE 0.9% 1000ML 1,000 ML IVS ONE (12:08)
--- NOTE | 2017-07-24 12:11 | ED.PDOC ---
History of Present Illness - General Chief Complaint: GI Problem Stated Complaint: vomiting Time Seen by Provider: 07/24/17 12:00 Information Source: patient - History of Present Illness Abdominal Pain Onset Location: generalized abdomen Pain Radiation: no radiation Quality: severe, cramping Timing/Duration: 24 hours Improving Factors: nothing Worsening Factors: nothing Associated Symptoms: heartburn, nausea/vomiting Review of Systems - Review of Systems Constitutional: States: fever EENTM: States: no symptoms reported Respiratory: States: no symptoms reported Cardiology: States: no symptoms reported Gastrointestinal/Abdominal: States: see HPI, abdominal pain, nausea, vomiting Genitourinary: States: no symptoms reported Musculoskeletal: States: no symptoms reported Skin: States: no symptoms reported Neurological: States: no symptoms reported Endocrine: States: no symptoms reported Past Medical History (General) - Patient Medical History Hx Seizures: No Hx Stroke: No Hx Dementia: No Hx Asthma: No Hx of COPD: No Hx Cardiac Disorders: No Hx Congestive Heart Failure: No Hx Pacemaker: No Hx Hypertension: No Hx Thyroid Disease: Yes Hx Diabetes: No Hx Gastroesophageal Reflux: No Hx Renal Disease: No Hx Cancer: No Hx of HIV: No Hx Hepatitis C: No Hx MRSA: No - Vaccination History Hx Tetanus, Diphtheria Vaccination: No Hx Influenza Vaccination: No Hx Pneumococcal Vaccination: No - Social History Hx Tobacco Use: Yes Hx Chewing Tobacco Use: No Hx Alcohol Use: Yes Hx Substance Use: Yes - THC Hx Substance Use Treatment: No Hx Depression: No Hx Physical Abuse: No Hx Emotional Abuse: No Hx Suspected Abuse: No - Female History Patient is a Female of Child Bearing Age (10 -59 yrs old): Yes Patient : No Family Medical History - Family History Mother Family History: Unknown Living Status: Still Living Hx Family Asthma: Yes - dad Hx Family Hypertension: Yes - dad Father Living Status: Still Living Hx Family Asthma: Yes Hx Family Hypertension: Yes Physical Exam - Physical Exam General Appearance: Alert, Obvious distress Eyes, Ears, Nose, Throat Exam: PERRL/EOMI, pharynx normal Neck: supple, normal inspection Respiratory: lungs clear, normal breath sounds Cardiovascular/Chest: regular rate, rhythm, no edema Gastrointestinal/Abdominal: normal bowel sounds, soft, tenderness - diffusely Extremity: normal range of motion, non-tender, normal inspection Neurologic: alert, oriented x 3 Skin Exam: normal color, diaphoresis Departure - Departure Clinical Impression: Vomiting Qualifiers: Vomiting type: unspecified Vomiting Intractability: non-intractable Nausea presence: with nausea Qualified Code(s): R11.2 - Nausea with vomiting, unspecified Disposition: Discharge to Home or Self Care Departure Forms: ED Discharge - Pt. Copy, Patient Portal Self Enrollment Prescriptions: Metoclopramide Tab [Reglan Tab] 5 mg PO Q6HR PRN #20 tab PRN Reason: Nausea Promethazine Tab [Phenergan Tablet] 25 mg PO .Q4H PRN #15 tab PRN Reason: Nausea -- Severe Home Medications: Ambulatory Orders Famotidine 20 mg PO DAILY #30 tab 06/27/17 Levothyroxine Sodium [Synthroid] 50 mcg PO DAILY #30 tab 06/27/17 Ondansetron [Zofran Odt] 4 mg PO Q4H PRN #10 tab 06/27/17 Sucralfate Tab [Carafate Tab] 1 gm PO QID #120 tab 06/27/17 Metoclopramide Tab [Reglan Tab] 5 mg PO Q6HR PRN #20 tab 07/24/17 Promethazine Tab [Phenergan Tablet] 25 mg PO .Q4H PRN #15 tab 07/24/17
[2017-07-24] MEDS ORDERED: PROMETHAZINE HCL INJ 25 MG/ML VIAL ONE (12:15)
[2017-07-24] MEDS ORDERED: SODIUM CHLORIDE 0.9% 50ML 50 ML ONE (12:15)
[2017-07-24] MEDS ORDERED: diphenhydrAMINE HCL 50 MG/ML VIAL IV PRN (12:47)
[2017-07-24] MEDS ORDERED: METOCLOPRAMIDE HCL INJ 10 MG/2 ML VIAL IV ONE (12:48)
--- NOTE | 2017-07-24 13:19 | RAD ---
EXAM DESCRIPTION: KUB CLINICAL HISTORY: diffuse abd pain COMPARISON: None. FINDINGS: Single supine view of the abdomen was submitted. There is no evidence of bowel obstruction. There is no abnormal calcification within the abdomen. There is no acute osseous process visualized. Calcifications within the pelvis compatible with phleboliths. IMPRESSION: No acute abnormalities. Electronically signed by: Salbador South MD 07/24/2017 1:17 PM CDT
[2017-07-24] MEDS ORDERED: PROCHLORPERAZINE INJ 10 MG/2 ML VIAL IV ONE (13:47)
[2017-07-24] MEDS ORDERED: MORPHINE SULFATE INJ 10 MG/ML VIAL IV ONE (14:33)
[2017-07-24 15:29] VITALS: O2SAT 98
[2017-07-24 15:47] VITALS: BP 110/70
== END 2017-07-24 16:02 | disposition home or self-care (01) ==
LOC: ER 11:54
DX: R11.2 Nausea with vomiting, unspecified (principal); R10.84 Generalized abdominal pain; E07.9 Disorder of thyroid, unspecified
CPT/HCPCS: 36415; 74018; 80053; 83690; 85025; A4216; J0780; J1200; J2270; J2550; J2765; J7030

== ENCOUNTER 2017-12-31 05:56 | Emergency (ER) | payer SELFPAY ==
[2017-12-31] MEDS ORDERED: LACTATED RINGERS 1,000 ML IVS ONE (06:25)
--- NOTE | 2017-12-31 06:26 | ED.PDOC ---
History of Present Illness - General Source: patient Exam Limitations: no limitations - History of Present Illness Initial Comments: Lily Segovia 37 y/o female stated that she had sharp pains on right side of abdomen which goes all the way to her chest and shoulders for the last 3 days stated feels like muscle spasm..Also felt nauseated when she eats and had diarrhea yesterday.No dysuria,no vomiting Timing/Duration: constant Severity: moderate Improving Factors: nothing Worsening Factors: nothing Associated Symptoms: other - see hpi <Abdi Philippe - Last Filed: 12/31/17 06:53> <CAROL BILLINGSLEY - Last Filed: 12/31/17 07:55> - General Chief Complaint: General Stated Complaint: body aches Time Seen by Provider: 12/31/17 06:00 - History of Present Illness Allergies/Adverse Reactions: Allergies NO KNOWN ALLERGY Allergy (Verified 09/15/16 09:36) Home Medications: Ambulatory Orders Famotidine 20 mg PO DAILY #30 tab 06/27/17 Levothyroxine Sodium [Synthroid] 50 mcg PO DAILY #30 tab 06/27/17 Ondansetron [Zofran Odt] 4 mg PO Q4H PRN #10 tab 06/27/17 Sucralfate Tab [Carafate Tab] 1 gm PO QID #120 tab 06/27/17 Metoclopramide HCl [Reglan] 10 mg PO Q6HR PRN #15 tab 07/24/17 Metoclopramide Tab [Reglan Tab] 5 mg PO Q6HR PRN #20 tab 07/24/17 Promethazine Tab [Phenergan Tablet] 25 mg PO .Q4H PRN #15 tab 07/24/17 Promethazine Tab [Phenergan Tablet] 25 mg PO .Q4H PRN #15 tab 07/24/17 Review of Systems - Review of Systems Constitutional: States: see HPI, malaise EENTM: States: nose congestion Respiratory: States: no symptoms reported Cardiology: States: no symptoms reported Gastrointestinal/Abdominal: States: no symptoms reported Genitourinary: States: no symptoms reported Musculoskeletal: States: muscle pain Skin: States: no symptoms reported Neurological: States: no symptoms reported <Abdi Philippe - Last Filed: 12/31/17 06:53> Past Medical History (General) - Patient Medical History Hx Seizures: No Hx Stroke: No Hx Dementia: No Hx Asthma: No Hx of COPD: No Hx Cardiac Disorders: No Hx Congestive Heart Failure: No Hx Pacemaker: No Hx Hypertension: No Hx Thyroid Disease: Yes Hx Diabetes: No Hx Gastroesophageal Reflux: No Hx Renal Disease: No Hx Cancer: No Hx of HIV: No Hx Hepatitis C: No Hx MRSA: No Surgical History: no surgical history - Vaccination History Hx Tetanus, Diphtheria Vaccination: No Hx Influenza Vaccination: No Hx Pneumococcal Vaccination: No - Social History Hx Tobacco Use: Yes Hx Chewing Tobacco Use: No Hx Alcohol Use: Yes Hx Substance Use: Yes - THC Hx Substance Use Treatment: No Hx Depression: No Hx Physical Abuse: No Hx Emotional Abuse: No Hx Suspected Abuse: No - Activities of Daily Living Patient Lives Alone: No - Female History Patient is a Female of Child Bearing Age (10 -59 yrs old): Yes Hx Last Menstrual Period: 12/18/17 Patient : No <Abdi Philippe R - Last Filed: 12/31/17 06:53> Family Medical History - Family History Mother Family History: Unknown Living Status: Still Living Hx Family Asthma: Yes - dad Hx Family Hypertension: Yes - dad Father Living Status: Still Living Hx Family Asthma: Yes Hx Family Hypertension: Yes <Abdi Philippe R - Last Filed: 12/31/17 06:53> Physical Exam - Physical Exam General Appearance: Alert, Anxious, No apparent distress Eye Exam: bilateral normal Ears, Nose, Throat: hearing grossly normal, normal ENT inspection, nasal congestion Neck: non-tender, full range of motion, supple, normal inspection Respiratory: chest non-tender, no respiratory distress, wheezing - mild Cardiovascular/Chest: normal peripheral pulses, regular rate, rhythm, no murmur Peripheral Pulses: radial,right: 2+, radial,left: 2+ Gastrointestinal/Abdominal: normal bowel sounds, soft, no organomegaly, tenderness - right side no peritoneal signs Back Exam: no CVA tenderness, no vertebral tenderness Extremity: non-tender, no pedal edema, no calf tenderness Neurologic: alert, oriented x 3 Skin Exam: normal color, warm/dry Lymphatic: no adenopathy <Abdi Philippe - Last Filed: 12/31/17 06:53> Progress - Progress Progress: accepted care for patient from Dr. Philippe. Patient states she's had 3 day history of right abdominal pain both upper quadrant as well as radiating down to her right lower quadrant. Patient states the pain is usually sharp and at times radiates to her left shoulder and chest area. Patient does have some cramping-like sensation that occurs that as well as some abdominal distention. Patient notes she often has reflex and at times does have quite a bit distention after eating. Patient has had no fever but some chills. She's had cough and cold symptoms for the past several days as well. Patient denies any shortness of breath or wheezing. Patient's has no past medical history however she has had a tubal ligation and a hernia repair. Patient does smoke a pack of cigarettes a day, often smokes marijuana, and drinks at times up to 18 beers a day. She drinks almost daily. Physical exam HEENT: No jaundice, pupils are equal round and reactive to light, OP has mild erythema no edema or exudate neck is supple without lymphadenopathy CV: RRR normal S1-S2 without murmur, rubs or gallops good distal pulses Lungs: Clear to auscultation without crackles, rhonchi, or wheezes Abdomen: Soft, quadrant without rebound or guarding nondistended positive bowel sounds no masses felt Extremities: No cyanosis, clubbing, or edema Neuro: Alert and oriented to person place and time 12/31/17 07:06 12/31/17 07:52 discussed with patient that may still be her gallbladder causing the pain. However, no emergent process is ongoing now. Explained the viral process of her URI and have asked her to follow up with her PCP in 1 week when she is better from the URI and they can discuss if Hida scan is needed. Stop smoking and needs to stop excessive ETOH use. - Results/Orders Results/Orders: 12/31/17 06:25 IV Care:Saline Lock per Protoc QSHIFT 12/31/17 07:00 EKG STAT Laboratory Results WBC 7.5 K/mm3 (4.8-10.8) 12/31/17 06:36 RBC 4.02 M/mm3 (4.20-5.40) L 12/31/17 06:36 Hgb 13.5 gm/dL (12.0-16.0) 12/31/17 06:36 Hct 39.8 % (36.0-47.0) 12/31/17 06:36 MCV 99.0 fl (81.0-99.0) 12/31/17 06:36 MCH 33.5 pg (27.0-31.0) H 12/31/17 06:36 MCHC 34.0 g/dL (33.0-37.0) 12/31/17 06:36 RDW 13.1 % (11.5-14.5) 12/31/17 06:36 Plt Count 258 K/mm3 (130-400) 12/31/17 06:36 MPV 7.6 fl (7.40-10.4) 12/31/17 06:36 Absolute Neuts (auto) 5.90 K/uL (1.8-6.8) 12/31/17 06:36 Absolute Lymphs (auto) 0.60 K/uL (1.0-3.4) L 12/31/17 06:36 Absolute Monos (auto) 0.90 K/uL (0.2-0.8) H 12/31/17 06:36 Absolute Eos (auto) 0.10 K/uL (0.0-0.4) 12/31/17 06:36 Absolute Basos (auto) 0.00 K/uL (0.0-0.1) 12/31/17 06:36 Neutrophils % 78.1 % (42.0-78.0) H 12/31/17 06:36 Lymphocytes % 8.1 % (20.0-50.0) L 12/31/17 06:36 Monocytes % 12.0 % (2.0-9.0) H 12/31/17 06:36 Eosinophils % 1.5 % (1.0-5.0) 12/31/17 06:36 Basophils % 0.3 % (0.0-2.0) 12/31/17 06:36 PT 9.7 SECONDS (9.0-10.9) 12/31/17 06:36 INR 0.97 (0.9-1.15) 12/31/17 06:36 PTT (SP) 27.4 SECONDS (21.8-31.6) 12/31/17 06:36 Sodium 134 mmol/L (135-145) L 12/31/17 06:36 Potassium 3.7 mmol/L (3.6-5.0) 12/31/17 06:36 Chloride 103 mmol/L (101-111) 12/31/17 06:36 Carbon Dioxide 23 mmol/L (21-31) 12/31/17 06:36 Anion Gap 11.7 (12-18) L 12/31/17 06:36 BUN 7 mg/dL (7-18) 12/31/17 06:36 Creatinine 0.68 mg/dL (0.6-1.3) 12/31/17 06:36 BUN/Creatinine Ratio 10.3 (10-20) 12/31/17 06:36 Random Glucose 109 mg/dL (70-105) H 12/31/17 06:36 Serum Osmolality 266.8 mOsm/L (275-295) L 12/31/17 06:36 Lactic Acid 1.1 mmol/L (0.5-2.2) 12/31/17 06:36 Calcium 9.3 mg/dL (8.4-10.2) 12/31/17 06:36 Magnesium 1.7 mg/dL (1.8-2.5) L 12/31/17 06:36 Total Bilirubin 0.8 mg/dL (0.2-1.0) 12/31/17 06:36 Direct Bilirubin 0.1 mg/dL (0-0.2) 12/31/17 06:36 Indirect Bilirubin 0.7 mg/dL (0.2-0.8) 12/31/17 06:36 AST 31 IU/L (10-42) 12/31/17 06:36 ALT 28 IU/L (10-60) 12/31/17 06:36 Alkaline Phosphatase 72 IU/L (42-121) 12/31/17 06:36 Creatine Kinase 73 IU/L (26-140) 12/31/17 06:36 CK-MB (CK-2) 1.5 ng/mL (0.0-4.4) 12/31/17 06:36 CK-MB (CK-2) % Not Reportable 12/31/17 06:36 Troponin I < 0.02 ng/mL (0.01-0.05) 12/31/17 06:36 B-Natriuretic Peptide 11.3 pg/ml (0-100) 12/31/17 06:36 Serum Total Protein 7.6 gm/dL (6.4-8.2) 12/31/17 06:36 Albumin 4.4 g/dl (3.2-5.5) 12/31/17 06:36 Lipase < 14 U/L (22-51) L 12/31/17 06:43 Serum HCG, Qual Negative 12/31/17 06:59 Urine Color Yellow (Yellow) 12/31/17 07:21 Urine Appearance Clear (Clear) 12/31/17 07:21 Urine pH 7.5 (4.5-7.8) 12/31/17 07:21 Ur Specific [place] 1.015 (1.005-1.030) 12/31/17 07:21 Urine Protein Negative mg/dL 12/31/17 07:21 Urine Glucose (UA) Negative mg/dL (Negative) 12/31/17 07:21 Urine Ketones Negative mg/dL (NEGATIVE) 12/31/17 07:21 Urine Blood Negative (Negative) 12/31/17 07:21 Urine Nitrite Negative 12/31/17 07:21 Urine Bilirubin Negative (NEGATIVE) 12/31/17 07:21 Urine Urobilinogen 0.2 mg/dL (0.2-1.0) 12/31/17 07:21 Ur Leukocyte Esterase Negative (Negative) 12/31/17 07:21 Urine RBC 0 /hpf 12/31/17 07:21 Urine WBC 0 /hpf 12/31/17 07:21 Ur Epithelial Cells 10-20 /hpf 12/31/17 07:21 Urine Bacteria 0 12/31/17 07:21 Urine Opiates Screen Negative ng/mL (2000) 12/31/17 07:21 Urine Barbiturates Negative ng/mL (200) 12/31/17 07:21 Ur Phencyclidine Scrn Negative ng/mL (25) 12/31/17 07:21 U Amphetamin/Meth Scrn Negative ng/mL (1000) 12/31/17 07:21 U Benzodiazepines Scrn Negative ng/mL (200) 12/31/17 07:21 U Cocaine Metab Screen Negative ng/mL (300) 12/31/17 07:21 U Cannabinoids Screen Positive ng/mL (50) H 12/31/17 07:21 CT abdomen: no acute processes Chest Xray normal <BILLINGSLEY,CAROL - Last Filed: 12/31/17 07:55> Departure <Abdi Philippe - Last Filed: 12/31/17 06:53> - Departure Diet: low fat, low cholesterol <CAROL BILLINGSLEY - Last Filed: 12/31/17 07:55> - Departure Clinical Impression: Abdominal pain Qualifiers: Abdominal location: unspecified location Qualified Code(s): R10.9 - Unspecified abdominal pain Chest pain Qualifiers: Chest pain type: unspecified Qualified Code(s): R07.9 - Chest pain, unspecified URI (upper respiratory infection) Qualifiers: URI type: unspecified viral URI Qualified Code(s): J06.9 - Acute upper respiratory infection, unspecified Disposition: Discharge to Home or Self Care Condition: Good Departure Forms: ED Discharge - Pt. Copy, Patient Portal Self Enrollment Home Medications: Ambulatory Orders Famotidine 20 mg PO DAILY #30 tab 06/27/17 Levothyroxine Sodium [Synthroid] 50 mcg PO DAILY #30 tab 06/27/17 Ondansetron [Zofran Odt] 4 mg PO Q4H PRN #10 tab 06/27/17 Sucralfate Tab [Carafate Tab] 1 gm PO QID #120 tab 06/27/17 Metoclopramide HCl [Reglan] 10 mg PO Q6HR PRN #15 tab 07/24/17 Metoclopramide Tab [Reglan Tab] 5 mg PO Q6HR PRN #20 tab 07/24/17 Promethazine Tab [Phenergan Tablet] 25 mg PO .Q4H PRN #15 tab 07/24/17 Promethazine Tab [Phenergan Tablet] 25 mg PO .Q4H PRN #15 tab 07/24/17 Additional Instructions: OTC symptomatic care for URI. Follow up with PCP in 1 week to discuss if Hida scan needed. Stop tobacco use and excessive ETOH use. Return to Er for severe pain or intractable emesis
[2017-12-31] MEDS ORDERED: KETOROLAC TROMETHAMINE INJ 30 MG/ML VIAL IV ONE (06:35)
[2017-12-31 06:52] VITALS: TEMP 99.2
--- NOTE | 2017-12-31 07:46 | RAD ---
EXAM DESCRIPTION: AP view of the chest CLINICAL HISTORY:37 years Female, pain Comparison: None FINDINGS: No focal lung consolidation. No pleural effusion. No pneumothorax. Cardiac and mediastinal silhouette is unremarkable. No acute osseous abnormality. Soft tissues are unremarkable. IMPRESSION: No acute findings. No focal lung consolidation. Electronically signed by: Keo Woo DO 12/31/2017 7:44 AM [employer]
--- NOTE | 2017-12-31 07:49 | CT ---
EXAM DESCRIPTION: Abdoment/Pelvis w/o Contrast CLINICAL HISTORY:37 years Female, RUQ and RLQ pain Comparison: None TECHNIQUE: Contiguous axial images of the abdomen and pelvis were obtained followed by reconstruction images. This exam was performed according to our departmental dose-optimization program, which includes automated exposure control, adjustment of the mA and/or kV according to patient size and/or use of iterative reconstruction technique. FINDINGS: Lung bases: Lung bases are clear. Heart: Visualized heart is within normal limits in size. Liver:Unremarkable. No focal liver lesion. Gallbladder:Unremarkable. No gallstones. No gallbladder wall thickening or pericholecystic fluid. Spleen:Unremarkable Pancreas: Pancreas is unremarkable. Adrenal glands:Within normal limits. Kidneys/ureters:Small right renal cyst, stable. Left kidney is normal in appearance. No hydronephrosis or nephrolithiasis. Bladder:Unremarkable. Pelvic organs: No acute abnormality Vascular structures: within normal limits Peritoneum: No free fluid. Lymph nodes: No abnormal lymph nodes. Stomach/small bowel/colon: Stomach is unremarkable. Small bowel is unremarkable. Colon is unremarkable. Appendix: No evidence of appendicitis. Bones: No acute osseous abnormality. Soft tissues: Unremarkable.. IMPRESSION: No acute intra-abdominal abnormality. Electronically signed by: Keo Woo DO 12/31/2017 7:48 AM [employer]
[2017-12-31 08:33] VITALS: BP 105/76; O2SAT 100
== END 2017-12-31 08:18 | disposition home or self-care (01) ==
LOC: ER 05:56
DX: J06.9 Acute upper respiratory infection, unspecified (principal); R07.9 Chest pain, unspecified; R10.9 Unspecified abdominal pain; R11.0 Nausea; E07.9 Disorder of thyroid, unspecified; Z87.891 Personal history of nicotine dependence; Z79.899 Other long term (current) drug therapy
CPT/HCPCS: 36415; 71045; 74176; 80048; 80076; 80307; 81001; 82550; 82553; 83605; 83690; 83880; 84484; 84703; 85025; 85610; 85730; 93005; J1885; J7120

== ENCOUNTER 2018-06-29 06:03 | Emergency (ER) | payer SELFPAY ==
[2018-06-29] MEDS ORDERED: SODIUM CHLORIDE 0.9% 1000ML 1,000 ML IVS ONE (06:12)
[2018-06-29] MEDS ORDERED: ONDANSETRON INJ 4 MG/2 ML VIAL IV ONE ×2 (06:12→06:28)
[2018-06-29] MEDS ORDERED: MORPHINE SULFATE INJ 10 MG/ML VIAL IV ONE (06:28)
--- NOTE | 2018-06-29 06:42 | ED.PDOC ---
History of Present Illness - General Source: patient, RN notes reviewed, Vital Signs reviewed Exam Limitations: no limitations Additional Information: 38 YEAR OLD PRESENTS WITH ABDOMINAL PAIN ASSOCIATED WITH NAUSEA VOMITING AND DIARRHEA ONSET YESTERDAY AFTER EATING ENGLISH FOOD NO BLOOD OR MUCOUS IN THE STOOLS WATERY 4-6 EPISODES VOMITING SEVERAL TIMES LAST 6 HOURS NO BLOOD IN THE URINE NO PAIN ON URINATION FAMILY HISTORY( FATHER ) OF RENAL COLIC ADMITS TO HAVE ABNORMAL VAGINAL DISCHARGE NO PREVIOUS ABDOMINAL SURGERY LMP JUNE 17 2018 DOES DRINK AND SMOKE BEER ALMOST EVERYDAY PHYSICAL RESTLESS VOMITING AT THE TIME OF EXAM ABDOMEN TENDER RLQ SOME GUARDING NO REBOUND BOWEL SOUNDS NORMAL - History of Present Illness Timing/Duration: 24 hours Severity: moderate Improving Factors: nothing Associated Symptoms: loss of appetite, nausea/vomiting <Alexandria Anders - Last Filed: 06/29/18 06:47> <Anthony Victoria - Last Filed: 06/29/18 09:55> - General Chief Complaint: GI Problem Stated Complaint: vomiting Time Seen by Provider: 06/29/18 06:29 - History of Present Illness Allergies/Adverse Reactions: Allergies NO KNOWN ALLERGY Allergy (Verified 09/15/16 09:36) Home Medications: Ambulatory Orders Famotidine 20 mg PO DAILY #30 tab 06/27/17 Levothyroxine Sodium [Synthroid] 50 mcg PO DAILY #30 tab 06/27/17 Ondansetron [Zofran Odt] 4 mg PO Q4H PRN #10 tab 06/27/17 Sucralfate Tab [Carafate Tab] 1 gm PO QID #120 tab 06/27/17 Metoclopramide HCl [Reglan] 10 mg PO Q6HR PRN #15 tab 07/24/17 Metoclopramide Tab [Reglan Tab] 5 mg PO Q6HR PRN #20 tab 07/24/17 Promethazine Tab [Phenergan Tablet] 25 mg PO .Q4H PRN #15 tab 07/24/17 Promethazine Tab [Phenergan Tablet] 25 mg PO .Q4H PRN #15 tab 07/24/17 Metronidazole 500 mg PO TID #45 tab 06/29/18 Ondansetron [Ondansetron Odt] 4 mg PO Q8HR PRN #10 tab 06/29/18 Promethazine HCl 25 mg PO Q6H PRN #10 tab 06/29/18 levoFLOXacin [Levaquin] 500 mg PO DAILY #14 tab 06/29/18 Review of Systems - Review of Systems Constitutional: States: no symptoms reported EENTM: States: no symptoms reported Respiratory: States: no symptoms reported Cardiology: States: no symptoms reported Gastrointestinal/Abdominal: States: see HPI Genitourinary: States: no symptoms reported Musculoskeletal: States: no symptoms reported Skin: States: no symptoms reported Neurological: States: no symptoms reported Endocrine: States: no symptoms reported Hematologic/Lymphatic: States: no symptoms reported <ChagoAlexandria - Last Filed: 06/29/18 06:47> Past Medical History (General) - Patient Medical History Hx Seizures: No Hx Stroke: No Hx Dementia: No Hx Asthma: No Hx of COPD: No Hx Cardiac Disorders: No Hx Congestive Heart Failure: No Hx Pacemaker: No Hx Hypertension: No Hx Thyroid Disease: Yes Hx Diabetes: No Hx Gastroesophageal Reflux: No Hx Renal Disease: No Hx Cancer: No Hx of HIV: No Hx Hepatitis C: No Hx MRSA: No - Vaccination History Hx Tetanus, Diphtheria Vaccination: No Hx Influenza Vaccination: No Hx Pneumococcal Vaccination: No - Social History Hx Tobacco Use: Yes Hx Chewing Tobacco Use: No Hx Alcohol Use: Yes Hx Substance Use: Yes - THC Hx Substance Use Treatment: No Hx Depression: No Hx Physical Abuse: No Hx Emotional Abuse: No Hx Suspected Abuse: No - Female History Hx Last Menstrual Period: 12/18/17 Patient : No <ChagoAlexandria Filed: 06/29/18 06:47> Family Medical History - Family History Mother Family History: Unknown Living Status: Still Living Hx Family Asthma: Yes - dad Hx Family Hypertension: Yes - dad Father Living Status: Still Living Hx Family Asthma: Yes Hx Family Hypertension: Yes <Chago,Alexandria Filed: 06/29/18 06:47> Physical Exam - Physical Exam General Appearance: Obvious distress Eye Exam: bilateral normal Ears, Nose, Throat: hearing grossly normal, normal ENT inspection, normal pharyn x Neck: non-tender, supple Respiratory: chest non-tender, normal breath sounds, no respiratory distress, no accessory muscle use, respiratory distress Cardiovascular/Chest: normal peripheral pulses, regular rate, rhythm, no edema, no gallop, no JVD Peripheral Pulses: radial,right: 2+, radial,left: 2+, femoral,right: 2+, femoral,left: 2+, popliteal,right: 2+, popliteal,left: 2+ Gastrointestinal/Abdominal: normal bowel sounds - TENDER IN THE RLQ NO GAURDING NO REBOUND NORMAL BOWEL SOUNDS , no pulsatile mass, tenderness Back Exam: no CVA tenderness Extremity: normal range of motion, non-tender, normal inspection, no pedal edema Neurologic: director professional services II-XII nml as tested, no motor/sensory deficits, alert, normal mood/affect <Alexandria Anders - Last Filed: 06/29/18 06:47> - Physical Exam Rectal Exam: other - he patient does have reymundo pus from the cervix. She does have cervical motion tenderness. She does have increased tenderness to the left adnexa, not the right. Uterus is anteverted. <Anthony Victoria - Last Filed: 06/29/18 09:55> Progress - Progress Progress: 06/29/18 09:48 the patient is a 38-year-old female presenting to the emergency room with nausea and vomiting since late last night. she has received nausea medications and IV fluids. She has had a significant vaginal discharge for couple of weeks and based on exam does appear to have pelvic inflammatory disease. The patient will be placed on 2 weeks of Levaquin and metronidazole. She is receiving first doses here. The patient had an abnormal ovarian structure 2 years ago on ultrasound that she has not had further ultrasounds on. She has had CT scans which are really not all that helpful for further evaluation of that issue. I do recommend that she get set up with a repeat pelvic ultrasound once her infection has cleared, as infection can complicate further delineation. She'll be written for some Zofran and Phenergan for as needed use for any further nausea and vomiting. The patient has had multiple recurrent episodes of abdominal pain over the last 2-3 years. She does apparently have known lactose intolerance and does need to strictly avoid lactose in her diet as this may be giving her recurrent pains as well. She has had a history of H. pylori in the past and certainly that infection can come back. She needs to avoid any alcohol intake with the antibiotics as it can make her very sick. She needs to keep well hydrated. Avoid sexual intercourse until all antibiotics are completed and her tests are returned. ER warnings were given for any acute worsening. - Results/Orders Results/Orders: Laboratory Tests 06/29/18 06/29/18 06/29/18 06:23 06:23 06:23 WBC 12.6 H RBC 4.26 Hgb 14.5 Hct 42.3 MCV 99.2 H MCH 34.1 H MCHC 34.4 RDW 13.1 Plt Count 373 MPV 7.4 Absolute Neuts (auto) 10.60 H Absolute Lymphs (auto) 1.30 Absolute Monos (auto) 0.50 Absolute Eos (auto) 0.10 Absolute Basos (auto) 0.00 Neutrophils % 84.1 H Lymphocytes % 10.7 L Monocytes % 4.2 Eosinophils % 0.7 L Basophils % 0.3 Sodium 139 Potassium 3.4 L Chloride 103 Carbon Dioxide 23 Anion Gap 16.4 BUN 10 Creatinine 0.87 BUN/Creatinine Ratio 11.5 Random Glucose 151 H Serum Osmolality 279.5 Calcium 9.9 Total Bilirubin 0.8 AST 26 ALT 18 Alkaline Phosphatase 73 Serum Total Protein 8.7 H Albumin 4.8 Globulin 3.9 H Albumin/Globulin Ratio 1.2 Lipase 28 TSH Serum HCG, Qual Urine Color Urine Appearance Urine pH Ur Specific Jay Urine Protein Urine Glucose (UA) Urine Ketones Urine Blood Urine Nitrite Urine Bilirubin Urine Urobilinogen Ur Leukocyte Esterase Urine RBC Urine WBC Ur Epithelial Cells Urine Bacteria 06/29/18 06/29/18 06/29/18 07:24 07:24 08:17 WBC RBC Hgb Hct MCV MCH MCHC RDW Plt Count MPV Absolute Neuts (auto) Absolute Lymphs (auto) Absolute Monos (auto) Absolute Eos (auto) Absolute Basos (auto) Neutrophils % Lymphocytes % Monocytes % Eosinophils % Basophils % Sodium Potassium Chloride Carbon Dioxide Anion Gap BUN Creatinine BUN/Creatinine Ratio Random Glucose Serum Osmolality Calcium Total Bilirubin AST ALT Alkaline Phosphatase Serum Total Protein Albumin Globulin Albumin/Globulin Ratio Lipase TSH 4.00 Serum HCG, Qual Negative Urine Color Yellow Urine Appearance Clear Urine pH 7.5 Ur Specific Jay 1.020 Urine Protein 30 Urine Glucose (UA) Negative Urine Ketones 15 H Urine Blood Negative Urine Nitrite Negative Urine Bilirubin Negative Urine Urobilinogen 0.2 Ur Leukocyte Esterase Negative Urine RBC 1-3 Urine WBC 0-1 Ur Epithelial Cells 1-3 Urine Bacteria Rare wet prep shows bacteria but no other abnormalities. Gonorrhea and chlamydia are sent out tests. <Anhtony Victoria L - Last Filed: 06/29/18 09:55> Departure <Alexandria Anders - Last Filed: 06/29/18 06:47> - Departure Diet: bland diet Activity: increase activity as tolerated <Anthony Victoria Abbi - Last Filed: 06/29/18 09:55> - Departure Clinical Impression: Pelvic inflammatory disease Nausea & vomiting Qualifiers: Vomiting type: unspecified Vomiting Intractability: non-intractable Qualified Code(s): R11.2 - Nausea with vomiting, unspecified Disposition: Discharge to Home or Self Care Condition: Fair Departure Forms: ED Discharge - Pt. Copy, Patient Portal Self Enrollment Instructions: Pelvic Inflammatory Disease (DC) Prescriptions: Ondansetron [Ondansetron Odt] 4 mg PO Q8HR PRN #10 tab PRN Reason: Nausea/Vomiting levoFLOXacin [Levaquin] 500 mg PO DAILY #14 tab Metronidazole 500 mg PO TID #45 tab Promethazine HCl 25 mg PO Q6H PRN #10 tab PRN Reason: Vomiting Home Medications: Ambulatory Orders Famotidine 20 mg PO DAILY #30 tab 06/27/17 Levothyroxine Sodium [Synthroid] 50 mcg PO DAILY #30 tab 06/27/17 Ondansetron [Zofran Odt] 4 mg PO Q4H PRN #10 tab 06/27/17 Sucralfate Tab [Carafate Tab] 1 gm PO QID #120 tab 06/27/17 Metoclopramide HCl [Reglan] 10 mg PO Q6HR PRN #15 tab 07/24/17 Metoclopramide Tab [Reglan Tab] 5 mg PO Q6HR PRN #20 tab 07/24/17 Promethazine Tab [Phenergan Tablet] 25 mg PO .Q4H PRN #15 tab 07/24/17 Promethazine Tab [Phenergan Tablet] 25 mg PO .Q4H PRN #15 tab 07/24/17 Metronidazole 500 mg PO TID #45 tab 06/29/18 Ondansetron [Ondansetron Odt] 4 mg PO Q8HR PRN #10 tab 06/29/18 Promethazine HCl 25 mg PO Q6H PRN #10 tab 06/29/18 levoFLOXacin [Levaquin] 500 mg PO DAILY #14 tab 06/29/18 Additional Instructions: the patient is a 38-year-old female presenting to the emergency room with nausea and vomiting since late last night. she has received nausea medications and IV fluids. She has had a significant vaginal discharge for couple of weeks and based on exam does appear to have pelvic inflammatory disease. The patient will be placed on 2 weeks of Levaquin and metronidazole. She is receiving first doses here. The patient had an abnormal ovarian structure 2 years ago on ultrasound that she has not had further ultrasounds on. She has had CT scans which are really not all that helpful for further evaluation of that issue. I do recommend that she get set up with a repeat pelvic ultrasound once her infection has cleared, as infection can complicate further delineation. She'll be written for some Zofran and Phenergan for as needed use for any further nausea and vomiting. The patient has had multiple recurrent episodes of abdominal pain over the last 2-3 years. She does apparently have known lactose intolerance and does need to strictly avoid lactose in her diet as this may be giving her recurrent pains as well. She has had a history of H. pylori in the past and certainly that infection can come back. She needs to avoid any alcohol intake with the antibiotics as it can make her very sick. She needs to keep well hydrated. Avoid sexual intercourse until all antibiotics are completed and her tests are returned. ER warnings were given for any acute worsening.
[2018-06-29] MEDS ORDERED: SUCRALFATE 1 GM/10 ML 1 GM UD PO ONE (07:44)
[2018-06-29] MEDS ORDERED: raNITIdine HCL INJ 50 MG in SODIUM CHLORIDE 0.9% 50ML 50 ML IVPB ONE (07:44)
[2018-06-29] MEDS ORDERED: raNITIdine HCL INJ 25 MG/ML VIAL ONE (07:48)
[2018-06-29] MEDS ORDERED: SODIUM CHLORIDE 0.9% 50ML 50 ML ONE ×2 (07:48→08:19)
[2018-06-29] MEDS ORDERED: KETOROLAC TROMETHAMINE INJ 30 MG/ML VIAL IV ONE (08:11)
[2018-06-29] MEDS ORDERED: FLUCONAZOLE 100 MG TAB PO ONE (08:11)
[2018-06-29] MEDS ORDERED: PROMETHAZINE HCL INJ 25 MG in SODIUM CHLORIDE 0.9% 50ML 50 ML IVPB ONE (08:15)
[2018-06-29] MEDS ORDERED: PROMETHAZINE HCL INJ 25 MG/ML VIAL ONE (08:19)
[2018-06-29] MEDS ORDERED: cefTRIAXone SODIUM 1 GM in SODIUM CHL 0.9% 50ML MIN-BAG+ 50 ML IVPB ONE (09:22)
[2018-06-29] MEDS ORDERED: metroNIDAZOLE IV PREMIX 500MG 500 MG in PREMIX BAG 1 BAG IVPB ONE (09:25)
[2018-06-29] MEDS ORDERED: levoFLOXacin 500 MG TAB PO ONE (09:25)
[2018-06-29] MEDS ORDERED: cefTRIAXone SODIUM 1 GM VIAL ONE (09:27)
[2018-06-29] MEDS ORDERED: SODIUM CHL 0.9% 50ML MIN-BAG+ 50 ML IVPB ONE (09:28)
[2018-06-29 09:47] VITALS: TEMP 97.7
[2018-06-29] MEDS ORDERED: metroNIDAZOLE IV PREMIX 500MG 100 ML IVPB ONE (09:51)
[2018-06-29 11:19] VITALS: BP 93/65; O2SAT 99
== END 2018-06-29 11:19 | disposition home or self-care (01) ==
LOC: ER 06:03
DX: N73.9 Female pelvic inflammatory disease, unspecified (principal); R11.2 Nausea with vomiting, unspecified; E07.9 Disorder of thyroid, unspecified; F17.200 Nicotine dependence, unspecified, uncomplicated; Z79.899 Other long term (current) drug therapy
CPT/HCPCS: 36415; 80053; 81001; 83690; 84443; 84703; 85025; 87210; 87491; 87591; A4216; J0696; J1885; J2270; J2405; J2550; J2780; J3490; J7030; J7050

== ENCOUNTER 2018-10-03 13:44 | Emergency (ER) | payer SELFPAY ==
[2018-10-03] MEDS ORDERED: ONDANSETRON INJ 4 MG/2 ML VIAL IV ONE (14:09)
--- NOTE | 2018-10-03 14:11 | ED.PDOC ---
History of Present Illness - General Chief Complaint: GI Problem Stated Complaint: N/V,epigastric pain Time Seen by Provider: 10/03/18 14:07 Source: patient Exam Limitations: no limitations - History of Present Illness Initial Comments: Patient presents with N/V since this morning. Multiple episodes. Has generalized abdominal pain. Denies diarrhea. Last meal was this morning and she says she vomited that up. Last BM yesterday was normal. No known sick contacts. No other complaints. Timing/Duration: 4-6 hours Severity: mild Improving Factors: nothing Worsening Factors: nothing Associated Symptoms: other - as in HPI Allergies/Adverse Reactions: Allergies NO KNOWN ALLERGY Allergy (Verified 09/15/16 09:36) Home Medications: Ambulatory Orders Famotidine 20 mg PO DAILY #30 tab 06/27/17 Levothyroxine Sodium [Synthroid] 50 mcg PO DAILY #30 tab 06/27/17 Ondansetron [Zofran Odt] 4 mg PO Q4H PRN #10 tab 06/27/17 Sucralfate Tab [Carafate Tab] 1 gm PO QID #120 tab 06/27/17 Metoclopramide HCl [Reglan] 10 mg PO Q6HR PRN #15 tab 07/24/17 Metoclopramide Tab [Reglan Tab] 5 mg PO Q6HR PRN #20 tab 07/24/17 Promethazine Tab [Phenergan Tablet] 25 mg PO .Q4H PRN #15 tab 07/24/17 Promethazine Tab [Phenergan Tablet] 25 mg PO .Q4H PRN #15 tab 07/24/17 Metronidazole 500 mg PO TID #45 tab 06/29/18 Ondansetron [Ondansetron Odt] 4 mg PO Q8HR PRN #10 tab 06/29/18 Promethazine HCl 25 mg PO Q6H PRN #10 tab 06/29/18 levoFLOXacin [Levaquin] 500 mg PO DAILY #14 tab 06/29/18 Omeprazole 20 mg PO QAM #30 cap 10/03/18 Promethazine Tab [Phenergan Tablet] 25 mg PO .Q4H #7 tab 10/03/18 Review of Systems - Review of Systems Constitutional: States: no symptoms reported EENTM: States: no symptoms reported Respiratory: States: no symptoms reported Cardiology: States: no symptoms reported Gastrointestinal/Abdominal: States: see HPI Genitourinary: States: no symptoms reported Musculoskeletal: States: no symptoms reported Skin: States: no symptoms reported Neurological: States: no symptoms reported Endocrine: States: no symptoms reported Hematologic/Lymphatic: States: no symptoms reported Past Medical History (General) - Patient Medical History Hx Seizures: No Hx Stroke: No Hx Dementia: No Hx Asthma: No Hx of COPD: No Hx Cardiac Disorders: No Hx Congestive Heart Failure: No Hx Pacemaker: No Hx Hypertension: No Hx Thyroid Disease: Yes Hx Diabetes: No Hx Gastroesophageal Reflux: No Hx Renal Disease: No Hx Cancer: No Hx of HIV: No Hx Hepatitis C: No Hx MRSA: No Surgical History: no surgical history - Vaccination History Hx Tetanus, Diphtheria Vaccination: No Hx Influenza Vaccination: No Hx Pneumococcal Vaccination: No - Social History Hx Tobacco Use: Yes Hx Chewing Tobacco Use: No Hx Alcohol Use: Yes Hx Substance Use: Yes - Marijuana Hx Substance Use Treatment: No Hx Depression: No Hx Physical Abuse: No Hx Emotional Abuse: No Hx Suspected Abuse: No - Female History Patient is a Female of Child Bearing Age (10 -59 yrs old): Yes Hx Last Menstrual Period: 12/18/17 Patient : No Family Medical History - Family History Mother Family History: Unknown Living Status: Still Living Hx Family Asthma: Yes - dad Hx Family Hypertension: Yes - dad Father Living Status: Still Living Hx Family Asthma: Yes Hx Family Hypertension: Yes Physical Exam - Physical Exam General Appearance: Alert Eye Exam: bilateral normal Ears, Nose, Throat: normal ENT inspection Neck: non-tender, full range of motion, supple Respiratory: lungs clear, normal breath sounds Cardiovascular/Chest: normal peripheral pulses, regular rate, rhythm Gastrointestinal/Abdominal: normal bowel sounds, non tender, soft Back Exam: normal inspection, no CVA tenderness Extremity: normal range of motion, non-tender, normal inspection Neurologic: no motor/sensory deficits, alert, normal mood/affect, oriented x 3 Skin Exam: normal color Lymphatic: no adenopathy Progress - Progress Progress: 10/03/18 19:42 Laboratory Tests 10/03/18 10/03/18 10/03/18 14:18 14:18 14:18 WBC 14.7 H RBC 4.41 Hgb 15.0 Hct 42.9 MCV 97.2 MCH 34.0 H MCHC 35.0 RDW 12.7 Plt Count 359 MPV 7.8 Absolute Neuts (auto) 11.30 H Absolute Lymphs (auto) 2.40 Absolute Monos (auto) 0.80 Absolute Eos (auto) 0.10 Absolute Basos (auto) 0.10 Neutrophils % 76.5 Lymphocytes % 16.6 L Monocytes % 5.5 Eosinophils % 1.0 Basophils % 0.4 Sodium 139 Potassium 3.4 L Chloride 106 Carbon Dioxide 20 L Anion Gap 16.4 BUN 9 Creatinine 0.82 BUN/Creatinine Ratio 11.0 Random Glucose 118 H Serum Osmolality 277.3 Calcium 10.1 Total Bilirubin 1.4 H AST 23 ALT 18 Alkaline Phosphatase 75 Serum Total Protein 8.5 H Albumin 5.0 Globulin 3.5 Albumin/Globulin Ratio 1.4 Lipase 21 L TSH 4.51 Thyroxine (T4) 7.90 Urine Color Urine Appearance Urine pH Ur Specific Rawlings Urine Protein Urine Glucose (UA) Urine Ketones Urine Blood Urine Nitrite Urine Bilirubin Urine Urobilinogen Ur Leukocyte Esterase Urine RBC Urine WBC Ur Epithelial Cells Amorphous Sediment Urine Bacteria Urine Mucus Urine HCG, Qual Urine Opiates Screen Urine Barbiturates Ur Phencyclidine Scrn U Amphetamin/Meth Scrn U Benzodiazepines Scrn U Cocaine Metab Screen U Cannabinoids Screen 10/03/18 10/03/18 10/03/18 16:30 16:30 16:30 WBC RBC Hgb Hct MCV MCH MCHC RDW Plt Count MPV Absolute Neuts (auto) Absolute Lymphs (auto) Absolute Monos (auto) Absolute Eos (auto) Absolute Basos (auto) Neutrophils % Lymphocytes % Monocytes % Eosinophils % Basophils % Sodium Potassium Chloride Carbon Dioxide Anion Gap BUN Creatinine BUN/Creatinine Ratio Random Glucose Serum Osmolality Calcium Total Bilirubin AST ALT Alkaline Phosphatase Serum Total Protein Albumin Globulin Albumin/Globulin Ratio Lipase TSH Thyroxine (T4) Urine Color Yellow Urine Appearance Sl cloudy Urine pH 6.5 Ur Specific Rawlings >= 1.030 Urine Protein 30 Urine Glucose (UA) Negative Urine Ketones 40 H Urine Blood Trace-intact H Urine Nitrite Negative Urine Bilirubin Negative Urine Urobilinogen 0.2 Ur Leukocyte Esterase Negative Urine RBC 0 Urine WBC 0-1 Ur Epithelial Cells 1-3 Amorphous Sediment 2+ Urine Bacteria 1+ Urine Mucus Large Urine HCG, Qual Negative Urine Opiates Screen Negative Urine Barbiturates Negative Ur Phencyclidine Scrn Negative U Amphetamin/Meth Scrn Negative U Benzodiazepines Scrn Negative U Cocaine Metab Screen Negative U Cannabinoids Screen Positive H Gallbladder U/S unremarkable. CT ab/pelvis showed esophagitis. Patient's nausea improved with phenergan. She requested pain medications so she was given a dose of Toradol in the E.D. and Tramadol #6 for home as well as Phenergan. Care instructions given. E.R. warnings given. Questions were elicited and answered. Patient voiced understanding and agreement with the plan. Departure - Departure Clinical Impression: Nausea & vomiting, Esophagitis, Gastritis Disposition: Discharge to Home or Self Care Condition: Good Departure Forms: ED Discharge - Pt. Copy, Patient Portal Self Enrollment Instructions: Nausea and Vomiting, Adult (DC) Diet: bland diet Activity: increase activity as tolerated Prescriptions: Omeprazole 20 mg PO QAM #30 cap Promethazine Tab [Phenergan Tablet] 25 mg PO .Q4H #7 tab Home Medications: Ambulatory Orders Famotidine 20 mg PO DAILY #30 tab 06/27/17 Levothyroxine Sodium [Synthroid] 50 mcg PO DAILY #30 tab 06/27/17 Ondansetron [Zofran Odt] 4 mg PO Q4H PRN #10 tab 06/27/17 Sucralfate Tab [Carafate Tab] 1 gm PO QID #120 tab 06/27/17 Metoclopramide HCl [Reglan] 10 mg PO Q6HR PRN #15 tab 07/24/17 Metoclopramide Tab [Reglan Tab] 5 mg PO Q6HR PRN #20 tab 07/24/17 Promethazine Tab [Phenergan Tablet] 25 mg PO .Q4H PRN #15 tab 07/24/17 Promethazine Tab [Phenergan Tablet] 25 mg PO .Q4H PRN #15 tab 07/24/17 Metronidazole 500 mg PO TID #45 tab 06/29/18 Ondansetron [Ondansetron Odt] 4 mg PO Q8HR PRN #10 tab 06/29/18 Promethazine HCl 25 mg PO Q6H PRN #10 tab 06/29/18 levoFLOXacin [Levaquin] 500 mg PO DAILY #14 tab 06/29/18 Omeprazole 20 mg PO QAM #30 cap 10/03/18 Promethazine Tab [Phenergan Tablet] 25 mg PO .Q4H #7 tab 10/03/18 Additional Instructions: Take medications as prescribed. Increase oral fluids. See your doctor this week about a possible upper endoscopy for recurring gastritis. Return to the E.R. if vomiting continues more than 24 more hours. Critical Care Note - Critical Care Note Total Time (mins): 100
[2018-10-03] MEDS ORDERED: PROMETHAZINE HCL INJ 25 MG in SODIUM CHLORIDE 0.9% 50ML 50 ML IVPB ONE (15:26)
[2018-10-03] MEDS ORDERED: SODIUM CHLORIDE 0.9% 50ML 50 ML ONE (15:29)
[2018-10-03] MEDS ORDERED: PROMETHAZINE HCL INJ 25 MG/ML VIAL ONE (15:29)
[2018-10-03] MEDS ORDERED: SODIUM CHLORIDE 0.9% 1000ML 1,000 ML IVS ONE (15:33)
--- NOTE | 2018-10-03 16:08 | US ---
EXAM DESCRIPTION: Gall Bladder CLINICAL HISTORY: RUQ pain and vomiting COMPARISON: Previous abdominal sonogram April 15, 2016, CT abdomen and pelvis December 31, 2017 TECHNIQUE: Right upper quadrant ultrasound FINDINGS: Pancreas: Visualized portions of the pancreas are unremarkable. Bowel gas obscures some areas. Aorta/inferior vena cava: No aortic aneurysm. Normal inferior vena cava. Liver: The liver is homogeneous in texture with normal echogenicity of the hepatic parenchyma. No focal liver lesion or intrahepatic bile duct dilatation. No liver surface irregularity. Normal appearance of the portal vein and hepatic veins. Gallbladder: Gallbladder appears normal with no intraluminal stones or wall thickening. Common bile duct: Normal caliber measuring 3.0 mm. Right kidney: Renal length is 10.1 cm. Normal cortical echogenicity. Cortical thickness is normal. No hydronephrosis is seen. No renal mass or shadowing calculus. IMPRESSION: No diagnostic abnormality is identified on sonographic examination of the right upper quadrant. Electronically signed by: Edwardo Sebastian MD 10/03/2018 4:07 PM CDT
--- NOTE | 2018-10-03 18:55 | CT ---
EXAM: CT Abdomen and Pelvis With Intravenous Contrast CLINICAL HISTORY: abdominal pain, N/V TECHNIQUE: Axial computed tomography images of the abdomen and pelvis with intravenous contrast. Sagittal and coronal reformatted images were created and reviewed. This CT exam was performed using one or more of the following dose reduction techniques: automated exposure control, adjustment of the mA and/or kV according to patient size, and/or use of iterative reconstruction technique. COMPARISON: No relevant prior studies available. FINDINGS: Limitations: None. Lung bases: Unremarkable. No mass. No consolidation. Mediastinum: There is mild circumferential thickening of the distal esophagus. ABDOMEN: Liver: Unremarkable. No mass. Gallbladder and bile ducts: Unremarkable. No calcified stones. No ductal dilation. Pancreas: Unremarkable. No mass. No ductal dilation. Spleen: Unremarkable. No splenomegaly. Adrenals: Unremarkable. No mass. Kidneys and ureters: 1.3 cm cyst right kidney. The left kidney appears normal. No hydronephrosis. Stomach and bowel: Unremarkable. No obstruction. No mucosal thickening. PELVIS: Appendix: The appendix is well-seen and appears normal. Bladder: Unremarkable. No mass. Reproductive: There are small bilateral ovarian follicles measuring up to 1.4 cm. ABDOMEN and PELVIS: Intraperitoneal space: Unremarkable. No free air. No significant fluid collection. Bones/joints: No acute fracture. No dislocation. Soft tissues: Small umbilical hernia noted containing fat. Vasculature: Unremarkable. No abdominal aortic aneurysm. Lymph nodes: Unremarkable. No enlarged lymph nodes. IMPRESSION: Distal esophageal thickening concerning for esophagitis. Electronically signed by: Brooke Ferraro MD 10/03/2018 6:53 PM CDT
[2018-10-03] MEDS ORDERED: KETOROLAC TROMETHAMINE INJ 30 MG/ML VIAL IV ONE (19:24)
[2018-10-03] MEDS ORDERED: PROMETHAZINE TAB (ER DISP) 25 MG TAB PO ONE (19:40)
[2018-10-03] MEDS ORDERED: traMADol HCL 50 MG (ER DISP) # 6 TABS PO ONE (19:40)
[2018-10-03 20:44] VITALS: BP 165/99; TEMP 99; O2SAT 100
== END 2018-10-03 20:44 | disposition home or self-care (01) ==
LOC: ER 13:44
DX: K29.70 Gastritis, unspecified, without bleeding (principal); K20.9 Esophagitis, unspecified; E07.9 Disorder of thyroid, unspecified; Z87.891 Personal history of nicotine dependence; Z79.899 Other long term (current) drug therapy
CPT/HCPCS: 36415; 74177; 76705; 80053; 80307; 81001; 81025; 83690; 84436; 84443; 85025; A4216; J1885; J2405; J2550; J7030; Q0169

== ENCOUNTER 2018-10-06 11:43 | Inpatient (IN) | payer SELFPAY ==
[2018-10-06] MEDS ORDERED: SODIUM CHLORIDE 0.9% 1000ML 1,000 ML IVS ONE (12:05)
[2018-10-06] MEDS ORDERED: KETOROLAC TROMETHAMINE INJ 30 MG/ML VIAL IV ONE ×2 (12:05→13:32)
[2018-10-06] MEDS ORDERED: METOCLOPRAMIDE HCL INJ 10 MG/2 ML VIAL IV ONE (12:05)
--- NOTE | 2018-10-06 12:16 | ED.PDOC ---
History of Present Illness - General Chief Complaint: GI Problem Stated Complaint: emesis and abdominal pain Time Seen by Provider: 10/06/18 12:04 Information Source: patient, RN notes reviewed Exam Limitations: no limitations - History of Present Illness Initial Comments: patient comes in today with a history of intractable emesis and abdominal pain. The pain is sharp in the right lower quadrant without radiation and constant. She has been able to keep anything down and was seen in the emergency room earlier this week and told to return if it did not resolve. She has not had this problem before and has no past medical history with the exception of some suspected ovarian cysts. She does state she's had some subjective fever and has not had a bowel movement since the symptoms started but was having normal bowel movements prior to that. Patient has no known drug allergies. She takes no prescription medications but does smoke and drinks a couple of beers daily. She also does use marijuana on a daily basis. She does not have any other illicit drug use. She has had some bright red blood in her emesis since she started throwing up. She has had a tubal ligation in the past so does not believe that she is . Abdominal Pain Onset Location: RLQ Pain Radiation: no radiation Quality: severe Timing/Duration: 1 week, getting worse Improving Factors: nothing Worsening Factors: eating Associated Symptoms: fever/chills, nausea/vomiting Review of Systems - Review of Systems Constitutional: States: fever, weakness EENTM: States: no symptoms reported. Denies: eye pain, ear pain, nose congestion Respiratory: States: no symptoms reported. Denies: cough, short of breath Cardiology: States: no symptoms reported. Denies: chest pain, palpitations Gastrointestinal/Abdominal: States: abdominal pain, constipation, nausea, vomiting Genitourinary: States: no symptoms reported. Denies: dysuria, frequency, hematuria Musculoskeletal: States: no symptoms reported Past Medical History (General) - Patient Medical History Hx Seizures: No Hx Stroke: No Hx Dementia: No Hx Asthma: No Hx of COPD: No Hx Cardiac Disorders: No Hx Congestive Heart Failure: No Hx Pacemaker: No Hx Hypertension: No Hx Thyroid Disease: Yes - not currently taking medication Hx Diabetes: No Hx Gastroesophageal Reflux: No Hx Renal Disease: No Hx Cancer: No Hx of HIV: No Hx Hepatitis C: No Hx MRSA: No Surgical History: other - Vaccination History Hx Tetanus, Diphtheria Vaccination: No Hx Influenza Vaccination: No Hx Pneumococcal Vaccination: No - Social History Hx Tobacco Use: Yes Hx Chewing Tobacco Use: No Hx Alcohol Use: Yes Hx Substance Use: Yes - Marijuana Hx Substance Use Treatment: No Hx Depression: No Hx Physical Abuse: No Hx Emotional Abuse: No Hx Suspected Abuse: No - Female History Patient is a Female of Child Bearing Age (10 -59 yrs old): Yes Hx Last Menstrual Period: 12/18/17 Patient : No Family Medical History - Family History Mother Family History: Unknown Living Status: Still Living Hx Family Asthma: Yes - dad Hx Family Hypertension: Yes - dad Father Living Status: Still Living Hx Family Asthma: Yes Hx Family Hypertension: Yes Physical Exam - Physical Exam General Appearance: Alert, Obvious distress Eyes, Ears, Nose, Throat Exam: PERRL/EOMI, normal ENT inspection, TMs normal, pharynx normal Neck: non-tender, full range of motion, supple, normal inspection Respiratory: chest non-tender, lungs clear, normal breath sounds, no respiratory distress Cardiovascular/Chest: normal peripheral pulses, regular rate, rhythm, no edema, no JVD, no murmur Peripheral Pulses: No deficit Gastrointestinal/Abdominal: normal bowel sounds, tenderness - TTP at the RLQ with no rebound no guarding non distended Extremity: non-tender Neurologic: alert, oriented x 3 Progress - Progress Progress: after reviewing the chart and I spoke to patient again she does admit this is an ongoing problem and its been going on the past several years. She states she just didn't know if it was all the same thing or if she was having multiple different problems since she was documented gastritis several times with emesis from the marijuana use and that she should stop all use. We started her on IV fluid and potassium replacement while were awaiting all of her test results. 10/06/18 15:14 - Results/Orders Results/Orders: 10/06/18 12:05 URINALYSIS Stat 10/06/18 13:30 KCl 40Meq/Ns [NS W/ KCL 40 meq/Liter] 1,000 ml IVS ONCE 10/06/18 13:49 Gall Bladder [US] Stat Laboratory Results WBC 13.7 K/mm3 (4.8-10.8) H 10/06/18 12:00 RBC 4.80 M/mm3 (4.20-5.40) 10/06/18 12:00 Hgb 16.4 gm/dL (12.0-16.0) H 10/06/18 12:00 Hct 45.8 % (36.0-47.0) 10/06/18 12:00 MCV 95.5 fl (81.0-99.0) 10/06/18 12:00 MCH 34.2 pg (27.0-31.0) H 10/06/18 12:00 MCHC 35.8 g/dL (33.0-37.0) 10/06/18 12:00 RDW 12.6 % (11.5-14.5) 10/06/18 12:00 Plt Count 376 K/mm3 (130-400) 10/06/18 12:00 MPV 7.7 fl (7.40-10.4) 10/06/18 12:00 Absolute Neuts (auto) 11.00 K/uL (1.8-6.8) H 10/06/18 12:00 Absolute Lymphs (auto) 1.60 K/uL (1.0-3.4) 10/06/18 12:00 Absolute Monos (auto) 1.10 K/uL (0.2-0.8) H 10/06/18 12:00 Absolute Eos (auto) 0.00 K/uL (0.0-0.4) 10/06/18 12:00 Absolute Basos (auto) 0.00 K/uL (0.0-0.1) 10/06/18 12:00 Neutrophils % 79.8 % (42.0-78.0) H 10/06/18 12:00 Lymphocytes % 11.5 % (20.0-50.0) L 10/06/18 12:00 Monocytes % 8.2 % (2.0-9.0) 10/06/18 12:00 Eosinophils % 0.2 % (1.0-5.0) L 10/06/18 12:00 Basophils % 0.3 % (0.0-2.0) 10/06/18 12:00 Sodium 133 mmol/L (135-145) L 10/06/18 12:00 Potassium 2.8 mmol/L (3.6-5.0) L 10/06/18 12:00 Chloride 89 mmol/L (101-111) L 10/06/18 12:00 Carbon Dioxide 25 mmol/L (21-31) 10/06/18 12:00 Anion Gap 21.8 (12-18) H 10/06/18 12:00 BUN 18 mg/dL (7-18) 10/06/18 12:00 Creatinine 0.92 mg/dL (0.6-1.3) 10/06/18 12:00 BUN/Creatinine Ratio 19.6 (10-20) 10/06/18 12:00 Random Glucose 115 mg/dL (70-105) H 10/06/18 12:00 Serum Osmolality 269.2 mOsm/L (275-295) L 10/06/18 12:00 Calcium 9.8 mg/dL (8.4-10.2) 10/06/18 12:00 Total Bilirubin 1.9 mg/dL (0.2-1.0) H D 10/06/18 12:00 AST 64 IU/L (10-42) H D 10/06/18 12:00 ALT 83 IU/L (10-60) H D 10/06/18 12:00 Alkaline Phosphatase 88 IU/L (42-121) 10/06/18 12:00 Serum Total Protein 9.0 gm/dL (6.4-8.2) H 10/06/18 12:00 Albumin 5.1 g/dl (3.2-5.5) 10/06/18 12:00 Globulin 3.9 gm/dL (2.3-3.5) H 10/06/18 12:00 Albumin/Globulin Ratio 1.3 (1.1-1.9) 10/06/18 12:00 Amylase 48 U/L (28-100) 10/06/18 12:00 Lipase 25 U/L (22-51) 10/06/18 12:00 Beta HCG, Quant < 0.6 mIU/mL (0-4.9) 10/06/18 12:00 Patient Name: DEANGELO COON Gender: Female Date of : 1980 Referring Physician: CAROL BILLINGSLEY Organization: [facility] Accession Number: [id number] Requested Date: October 06, 2018 12:05 Report Status: Final Requested Procedure: 1 Procedure Description: Abdoment/Pelvis w/o Contrast Modality: CT Findings Reporting MD: Francesco Kennedy Fellow MD: Not available Dictation Time: Plastic Joint Maker: Not available Major Assembler Date: EXAM DESCRIPTION: Abdomen/Pelvis w/o Contrast: Computed Tomography. CLINICAL HISTORY: 38 years Female RLQ abdominal pain COMPARISON: CT abdomen and pelvis with IV contrast 10/03/2018. TECHNIQUE: Spiral-axial scans 2.5 x 2.5 mm intervals through the abdomen and pelvis without oral or IV contrast. Coronal and sagittal 2.0 mm reconstructions. Total Exam DLP: 648.55 mGy-cm. This exam was performed according to our departmental CT dose-optimization program which includes automated exposure control, adjustment of the mA and/or kV according to patient size and/or use of iterative reconstruction technique; to reduce radiation dose to as low as reasonably achievable (ALARA). FINDINGS: Lung bases and pleura: Lung bases negative. Distal esophagus remains thickened. Liver, stomach, spleen, and adrenal glands: Long axis of the right lobe of the liver 17.5 cm. Normal density liver spleen adrenal glands. Pancreas, Gallbladder, and Ducts: Gallbladder is minimally distended with fluid fluid level almost reaching the anterior wall. The dense dependent fluid or sludge is similar density to the liver. Common bile duct distally measures 8 mm. Pancreas is negative. No fatty stranding or peripancreatic nodes. Kidneys and Ureters: Unremarkable. Mesentery: Negative. Aorta: Normal outer caliber. Small Bowel: Minimal gas and fluid not distended. No significant air-fluid levels. Terminal Ileum/Cecum: Normal caliber. Normal caliber of the appendix which is posterior containing gas and just anterior to the mid sacrum. No soft tissue inflammatory changes. Colon: Not distended. Scattered fecal matter. Mild redundancy of the sigmoid colon with minimal gaseous distention mid sigmoid but no complications. Pelvic Organs: Uterus anteverted. Bilateral ovaries are seen with [facility] [address] [place] [address], [address] [place] [address] T [phone] F [phone] [email or web address] - Report exported on Oct 06, 2018 13:50:87 -[id number] - Page 2 of 2 follicles or almost 2 cm cyst in the right ovary. No fluid in the cul-de-sac. No radiodense stones in the urinary bladder. Pelvic calcifications. Spine and Bony Pelvis: Negative. Abdominal Wall/Back Soft Tissues: Minimal diastases at the umbilicus but no definite hernia. Stable since the prior study.. IMPRESSION: 1. Gallbladder slightly distended containing fluid fluid level with large amount of sludge but no radiodense stones and no surrounding inflammatory changes. Common bile duct dilated. This has progressed since the prior study. No intrahepatic biliary dilatation. Since CT is not sensitive for gallstones, consider right upper quadrant abdominal ultrasound. 2. No free fluid or inflammatory changes in the abdomen or pelvis. Normal CT appearance of the appendix. 3. Right ovary slightly enlarged since the prior study with a simple cyst approximately 2 cm in diameter. No free fluid in the pelvis. Consider pelvic ultrasound if clinical findings in the pelvis are present. Patient Name: DEANGELO COON Gender: Female Date of : 1980 Referring Physician: CAROL BILLINGSLEY Organization: [facility] Accession Number: [id number] Requested Date: October 06, 2018 13:49 Report Status: Final Requested Procedure: 1 Procedure Description: Gall Bladder Modality: US Findings Reporting MD: Francesco Kennedy Fellow MD: Not available Dictation Time: Plastic Joint Maker: Not available Major Assembler Date: EXAM DESCRIPTION: Gall Bladder: ULTRASOUND. CLINICAL HISTORY: abnormal CT dilated common bile duct. Patient "has not eaten in 4 days." COMPARISON: CT scan of the abdomen and pelvis on this visit. Ultrasound of the gallbladder on 10/03/2018. TECHNIQUE: Transabdominal scanning: Chapin-scale and Doppler modes. FINDINGS: Gallbladder: Diffuse hypoechoic tissue representing sludge. No echogenic stones or acoustic shadowing. No fluid around the gallbladder. No wall thickening. 4.5 mm. Tender with transducer pressure. Common bile duct: caliber 4.0 mm within normal limits. Liver: normal echogenicity; contour liver capsule smooth where seen. No fluid around the liver. Intrahepatic biliary ducts normal caliber. Doppler hepatopedal flow portal vein.. Long axis right lobe 14.0 cm Pancreas: normal size and echogenicity. Duct not seen. Aorta: Not measured. Right kidney: 9.7 cm long axis. Minimal cortical thinning with normal echogenicity. 1.3 x 1.3 cm cyst on the upper pole. No echogenic stones. No hydronephrosis. No perirenal fluid.. IMPRESSION: 1. Gallbladder containing mostly sludge with no echogenic stones. No wall thickening or fluid, but tender with transducer pressure. Common bile duct normal caliber. This could represent acalculous cholecystitis or gallbladder dyskinesia. Consider follow-up radionuclide hepatobiliary imaging with gallbladder ejection fraction study. No intrahepatic biliary dilatation. Liver and pancreas unremarkable. 2. No ascites. Right kidney with minimal cortical thinning. 0.3 cm cyst upper pole. Otherwise unremarkable. Electronically signed by: Francesco Kennedy MD 10/06/2018 2:51 PM CDT 10/06/18 12:05 URINALYSIS Stat 10/06/18 13:30 KCl 40Meq/Ns [NS W/ KCL 40 meq/Liter] 1,000 ml IVS ONCE 10/06/18 15:12 Piperacillin/Tazobactam [Zosyn] 3.375 gm Sodium Chloride 0.9% 100Ml [NS (NACL 0.9%) 100ml] 100 ml IVPB ONCE Laboratory Results WBC 13.7 K/mm3 (4.8-10.8) H 10/06/18 12:00 RBC 4.80 M/mm3 (4.20-5.40) 10/06/18 12:00 Hgb 16.4 gm/dL (12.0-16.0) H 10/06/18 12:00 Hct 45.8 % (36.0-47.0) 10/06/18 12:00 MCV 95.5 fl (81.0-99.0) 10/06/18 12:00 MCH 34.2 pg (27.0-31.0) H 10/06/18 12:00 MCHC 35.8 g/dL (33.0-37.0) 10/06/18 12:00 RDW 12.6 % (11.5-14.5) 10/06/18 12:00 Plt Count 376 K/mm3 (130-400) 10/06/18 12:00 MPV 7.7 fl (7.40-10.4) 10/06/18 12:00 Absolute Neuts (auto) 11.00 K/uL (1.8-6.8) H 10/06/18 12:00 Absolute Lymphs (auto) 1.60 K/uL (1.0-3.4) 10/06/18 12:00 Absolute Monos (auto) 1.10 K/uL (0.2-0.8) H 10/06/18 12:00 Absolute Eos (auto) 0.00 K/uL (0.0-0.4) 10/06/18 12:00 Absolute Basos (auto) 0.00 K/uL (0.0-0.1) 10/06/18 12:00 Neutrophils % 79.8 % (42.0-78.0) H 10/06/18 12:00 Lymphocytes % 11.5 % (20.0-50.0) L 10/06/18 12:00 Monocytes % 8.2 % (2.0-9.0) 10/06/18 12:00 Eosinophils % 0.2 % (1.0-5.0) L 10/06/18 12:00 Basophils % 0.3 % (0.0-2.0) 10/06/18 12:00 Sodium 133 mmol/L (135-145) L 10/06/18 12:00 Potassium 2.8 mmol/L (3.6-5.0) L 10/06/18 12:00 Chloride 89 mmol/L (101-111) L 10/06/18 12:00 Carbon Dioxide 25 mmol/L (21-31) 10/06/18 12:00 Anion Gap 21.8 (12-18) H 10/06/18 12:00 BUN 18 mg/dL (7-18) 10/06/18 12:00 Creatinine 0.92 mg/dL (0.6-1.3) 10/06/18 12:00 BUN/Creatinine Ratio 19.6 (10-20) 10/06/18 12:00 Random Glucose 115 mg/dL (70-105) H 10/06/18 12:00 Serum Osmolality 269.2 mOsm/L (275-295) L 10/06/18 12:00 Calcium 9.8 mg/dL (8.4-10.2) 10/06/18 12:00 Total Bilirubin 1.9 mg/dL (0.2-1.0) H D 10/06/18 12:00 AST 64 IU/L (10-42) H D 10/06/18 12:00 ALT 83 IU/L (10-60) H D 10/06/18 12:00 Alkaline Phosphatase 88 IU/L (42-121) 10/06/18 12:00 Serum Total Protein 9.0 gm/dL (6.4-8.2) H 10/06/18 12:00 Albumin 5.1 g/dl (3.2-5.5) 10/06/18 12:00 Globulin 3.9 gm/dL (2.3-3.5) H 10/06/18 12:00 Albumin/Globulin Ratio 1.3 (1.1-1.9) 10/06/18 12:00 Amylase 48 U/L (28-100) 10/06/18 12:00 Lipase 25 U/L (22-51) 10/06/18 12:00 Beta HCG, Quant < 0.6 mIU/mL (0-4.9) 10/06/18 12:00 Departure - Departure Clinical Impression: Cholecystitis Vomiting Qualifiers: Vomiting type: unspecified Vomiting Intractability: intractable Nausea presence: with nausea Qualified Code(s): R11.2 - Nausea with vomiting, un specified Disposition: Admit Patient Condition: Fair Departure Forms: ED Discharge - Pt. Copy, Patient Portal Self Enrollment Home Medications: Ambulatory Orders Levothyroxine Sodium [Synthroid] 50 mcg PO DAILY #30 tab 06/27/17 Omeprazole 20 mg PO QAM #30 cap 10/03/18 Promethazine Tab [Phenergan Tablet] 25 mg PO .Q4H #7 tab 10/03/18 Decision To Admit - Decistion To Admit Decision to Admit Reason: Admit from ER Decision to Admit Date: 10/06/18 Decision to Admit Time: 16:00
[2018-10-06] MEDS ORDERED: KCL 40MEQ/NS 1,000 ML IVS ONE (13:30)
--- NOTE | 2018-10-06 13:46 | CT ---
EXAM DESCRIPTION: Abdomen/Pelvis w/o Contrast: Computed Tomography. CLINICAL HISTORY: 38 years Female RLQ abdominal pain COMPARISON: CT abdomen and pelvis with IV contrast 10/03/2018. TECHNIQUE: Spiral-axial scans 2.5 x 2.5 mm intervals through the abdomen and pelvis without oral or IV contrast. Coronal and sagittal 2.0 mm reconstructions. Total Exam DLP: 648.55 mGy-cm. This exam was performed according to our departmental CT dose-optimization program which includes automated exposure control, adjustment of the mA and/or kV according to patient size and/or use of iterative reconstruction technique; to reduce radiation dose to as low as reasonably achievable (ALARA). FINDINGS: Lung bases and pleura: Lung bases negative. Distal esophagus remains thickened. Liver, stomach, spleen, and adrenal glands: Long axis of the right lobe of the liver 17.5 cm. Normal density liver spleen adrenal glands. Pancreas, Gallbladder, and Ducts: Gallbladder is minimally distended with fluid fluid level almost reaching the anterior wall. The dense dependent fluid or sludge is similar density to the liver. Common bile duct distally measures 8 mm. Pancreas is negative. No fatty stranding or peripancreatic nodes. Kidneys and Ureters: Unremarkable. Mesentery: Negative. Aorta: Normal outer caliber. Small Bowel: Minimal gas and fluid not distended. No significant air-fluid levels. Terminal Ileum/Cecum: Normal caliber. Normal caliber of the appendix which is posterior containing gas and just anterior to the mid sacrum. No soft tissue inflammatory changes. Colon: Not distended. Scattered fecal matter. Mild redundancy of the sigmoid colon with minimal gaseous distention mid sigmoid but no complications. Pelvic Organs: Uterus anteverted. Bilateral ovaries are seen with follicles or almost 2 cm cyst in the right ovary. No fluid in the cul-de-sac. No radiodense stones in the urinary bladder. Pelvic calcifications. Spine and Bony Pelvis: Negative. Abdominal Wall/Back Soft Tissues: Minimal diastases at the umbilicus but no definite hernia. Stable since the prior study.. IMPRESSION: 1. Gallbladder slightly distended containing fluid fluid level with large amount of sludge but no radiodense stones and no surrounding inflammatory changes. Common bile duct dilated. This has progressed since the prior study. No intrahepatic biliary dilatation. Since CT is not sensitive for gallstones, consider right upper quadrant abdominal ultrasound. 2. No free fluid or inflammatory changes in the abdomen or pelvis. Normal CT appearance of the appendix. 3. Right ovary slightly enlarged since the prior study with a simple cyst approximately 2 cm in diameter. No free fluid in the pelvis. Consider pelvic ultrasound if clinical findings in the pelvis are present. Electronically signed by: Francesco Kennedy MD 10/06/2018 1:45 PM CDT
--- NOTE | 2018-10-06 14:53 | US ---
EXAM DESCRIPTION: Gall Bladder: ULTRASOUND. CLINICAL HISTORY: abnormal CT dilated common bile duct. Patient "has not eaten in 4 days." COMPARISON: CT scan of the abdomen and pelvis on this visit. Ultrasound of the gallbladder on 10/03/2018. TECHNIQUE: Transabdominal scanning: Chapin-scale and Doppler modes. FINDINGS: Gallbladder: Diffuse hypoechoic tissue representing sludge. No echogenic stones or acoustic shadowing. No fluid around the gallbladder. No wall thickening. 4.5 mm. Tender with transducer pressure. Common bile duct: caliber 4.0 mm within normal limits. Liver: normal echogenicity; contour liver capsule smooth where seen. No fluid around the liver. Intrahepatic biliary ducts normal caliber. Doppler hepatopedal flow portal vein.. Long axis right lobe 14.0 cm Pancreas: normal size and echogenicity. Duct not seen. Aorta: Not measured. Right kidney: 9.7 cm long axis. Minimal cortical thinning with normal echogenicity. 1.3 x 1.3 cm cyst on the upper pole. No echogenic stones. No hydronephrosis. No perirenal fluid.. IMPRESSION: 1. Gallbladder containing mostly sludge with no echogenic stones. No wall thickening or fluid, but tender with transducer pressure. Common bile duct normal caliber. This could represent acalculous cholecystitis or gallbladder dyskinesia. Consider follow-up radionuclide hepatobiliary imaging with gallbladder ejection fraction study. No intrahepatic biliary dilatation. Liver and pancreas unremarkable. 2. No ascites. Right kidney with minimal cortical thinning. 0.3 cm cyst upper pole. Otherwise unremarkable. Electronically signed by: Francesco Kennedy MD 10/06/2018 2:51 PM CDT
[2018-10-06] MEDS ORDERED: PIPERACILLIN/TAZOBACTAM 3.375 GM in SODIUM CHLORIDE 0.9% 100ML 100 ML IVPB ONE (15:12)
--- NOTE | 2018-10-06 16:16 | HP ---
SUPERVISING PHYSICIAN: Sammy Paul MD CHIEF COMPLAINT: Nausea and vomiting with right upper quadrant pain. HISTORY OF PRESENT ILLNESS: Ms. Segovia is a 38 year-old female who presented to the Emergency Room today. She was complaining of intractable emesis and abdominal pain that was located in the right upper quadrant. She was endorsing that she was unable to keep anything down orally and had been seen in the Emergency Room previously this week and was told to return if she had any worsening of symptoms. She has not had any similar symptoms in the past except for some issues with ovarian cysts and some nausea and vomiting associated with esophagitis. She denied any fevers but is not having normal bowel movements since the symptoms started. She notes she does not have any chronic illnesses, does not take any medications but she does smoke marijuana on a regular basis. It is noted that she has had some bright red blood emesis while throwing up. Her initial workup showed laboratory studies with leukocytosis 13,700 and a left shift with hemoglobin 16.4 and hematocrit 45.8. Her chemistries are showing a low sodium and potassium with sodium of 133 and potassium 2.8. Anion gap was elevated at 21.8 with BUN of 18 and creatinine 0.9. Liver functions were also showing elevation with initial total bilirubin of 1.9, AST 64, ALT 83. Lipase and amylase were both normal and her beta HCT quantitative was less than 0.6. Urinalysis showed 100 of protein. Microscopic revealed 5 to 10 epithelials and 4+ bacteria, no white cells, no RBCs, small amount of mucus. RADIOLOGY: Initial CT of abdominal and pelvis with contrast showed the gallbladder was slightly distended containing large amount of sludge but no obvious stones or surrounding inflammatory changes. The common bile duct was noted to be dilated which had progressed from previous studies with no intrahepatic biliary dilation noted. There was no free fluid or inflammatory changes in the abdomen on current findings. The appendix appeared to be normal. There was note of a right ovary slightly enlarged from previous exam with a simple cyst, no free fluid in the pelvis. She then had an ultrasound of the right upper quadrant and gallbladder and per radiology interpretation noted the gallbladder contained mostly sludge with no echogenic stones, no wall thickening or fluid but was tender with transducer pressure, common bile duct was noted to be normal caliber which could represent acalculous cholecystitis or gallbladder dyskinesia. There was no intrahepatic biliary dilation and liver and pancreas were unremarkable. There was no ascites and the right kidney appeared to have minimal cortical thinning with a 0.3 cm cyst in the right upper pole, otherwise unremarkable. Surgical consultation was obtained given the findings and patient's current clinical presentation. The patient was seen by Dr. Steiner in the Emergency Room, who recommended the patient be admitted for fluids and with possible cholecystitis, rule out choledocholithiasis with a possible mild acute cholecystitis. Her vital signs were showing to be stable. She was afebrile. She is now going to be placed in observation for initiation of fluids and further reevaluation in the morning. She is placed in observation in stable condition. PAST MEDICAL HISTORY: 1. Past episodes of esophagitis secondary to nausea and vomiting. No other chronic illnesses are listed. PAST SURGICAL HISTORY: 1. Hernia repair. 2. Tubal ligation. CURRENT MEDICATIONS: 1. Omeprazole 20 mg daily. 2. Promethazine table 25 mg as needed for nausea and vomiting. ALLERGIES: No known drug allergies. FAMILY HISTORY: Unremarkable. SOCIAL HISTORY: The patient smokes about a half pack a day and has since age 13. She is currently unemployed. She lives in [place] with another female. She drinks alcohol on rare occasions and she does note that she uses marijuana on a regular basis. REVIEW OF SYSTEMS: CONSTITUTIONAL: Denies any fevers, chills, just general malaise. No unintentional weight changes. HEENT: Negative for headaches, sore throat, nasal congestion, earaches, visual change. CARDIOVASCULAR: Denies chest pain or palpitations, syncopal episodes. RESPIRATORY: Negative for shortness of breath, wheezing or coughing. GASTROINTESTINAL: As noted in history of present illness, right upper quadrant pain with nausea and vomiting. Denies diarrhea or constipation. GENITOURINARY: Denies dysuria, hematuria, polyuria. MUSCULOSKELETAL: Denies arthralgias. SKIN: Denies rashes or lesions, moles. HEMATOLOGIC: Denies easy bruising or unexplained bleeding or transfusion reactions. NEUROLOGIC: Denies ataxia, seizures, vision changes, syncope or other neurological deficits/ PHYSICAL EXAMINATION: VITAL SIGNS: GENERAL: HEENT: NECK: CHEST: CARDIOVASCULAR: ABDOMEN: EXTREMITIES: NEUROLOGIC: LABORATORY: White count showing leukocytosis of 13,700, hemoglobin 16.4, hematocrit 45.8 with differential showing a left shift. Chemistries showed abnormal electrolytes with sodium 133, potassium 2.8, chloride 89, anion gap 21 with carbon dioxide 25. BUN and creatinine normal with creatinine 0.92. Blood sugar 115. Total bilirubin was elevated as well as AST of 64, ALT 83, alkaline phosphatase normal at 88. Amylase and lipase both normal and beta HCG less than 0.06. Urinalysis showed dark yellow urine with greater than 1.03 specific gravity, 100 of protein. Microscopic revealed 4+ bacteria but 0 to 1 WBC with 5 to 10 epithelials and small amount of mucus. RADIOLOGY: Abdominal pelvic CT with contrast per radiology interpretation showed slightly distended gallbladder with large amount of sludge, no stones were noted or inflammatory changes. Initial common bile duct was noted to be dilated. This was followed up with ultrasound of the gallbladder that showed a lot of sludge in the gallbladder but no echogenic stones, no wall thickening or fluid. As noted, she was tender with transducer pressure but the common bile duct was normal caliber which could possibly represent acalculous cholecystitis with gallbladder dyskinesia. There is no ascites noted. ASSESSMENT: 1. Right upper extremity pain secondary to biliary colic with concerns for cholelithiasis, need to rule out choledocholithiasis with mild acute cholecystitis. 2. Mild to moderate dehydration secondary to persistent nausea and vomiting. 3. Metabolic acidosis secondary to dehydration and persistent nausea and vomiting. 4. Elevated liver function tests with bilirubin AST, ALT with normal lipase and amylase probably due to persistent nausea and vomiting. 5. Leukocytosis probably secondary to stress response from nausea and vomiting and demarginalization but cannot completely rule out infectious process. 6. Electrolyte imbalance to include hypokalemia, hyponatremia in a patient with persistent nausea and vomiting. 7. History of esophagitis. 8. Chronic tobacco abuse in the form of cigarette smoking. 9. Chronic use of illicit drugs to include marijuana. PLAN: Ms. Segovia is going to placed in observation tonight after she was seen in consultation by Dr. Steiner. We are going to hydrate. I will give her a liter of LR, this will be followed up with continued fluids. We plan to recheck her labs in the morning. Will make her n.p.o. overnight and should she continue to be symptomatic and her liver functions continue to be elevated, she will need to be transferred likely for ERCP. However, will await Dr. Steiner's consultation and recommendations before we do anything related to that. I will give her pain management with Toradol and Dilaudid if needed. She will have antibiotics to include Zofran and Phenergan. She will be on DVT prophylaxis per protocol. She was given antibiotics in the Emergency Room to include Zosyn. Will continue this up with extended infusion of Zosyn 3.375 grams given that we cannot completely rule out an infectious process with the leukocytosis. Will anticipate her length of stay to be 2 to 3 days. Until we can reevaluate in the morning and further assess for need for ERCP, will continue to monitor and treat as needed. #[id number] [facility]
[2018-10-06] MEDS ORDERED: PIPERACILLIN/TAZOBACTAM 3.375 GM VIAL IVPB ONE (16:34)
[2018-10-06] MEDS ORDERED: SODIUM CHLORIDE 0.9% 100ML 100 ML IVPB ONE (16:34)
[2018-10-06] MEDS ORDERED: SODIUM CHLORIDE 0.9% (FLUSH) 10 ML SYG IV PRN (17:16)
[2018-10-06] MEDS ORDERED: LACTATED RINGERS 1,000 ML IVS ONE (17:24)
[2018-10-06] MEDS ORDERED: IV SET AND CAP CHANGE INJ INJ SCH (17:30)
[2018-10-06] MEDS: PIPERACILLIN/TAZOBACTAM 3.375 GM in SODIUM CHLORIDE 0.9% 100ML 100 ML IVPB SCH (17:52)
[2018-10-06] MEDS: PANTOPRAZOLE SODIUM IV 40 MG VIAL IV SCH (17:59)
[2018-10-06] MEDS: KETOROLAC TROMETHAMINE INJ 30 MG/ML VIAL IV SCH ×2 (17:59→23:27)
--- NOTE | 2018-10-06 19:34 | CONS ---
DATE OF CONSULTATION: 10/06/18 HISTORY OF PRESENT ILLNESS: The patient is a 38 year-old female who presented with nausea, vomiting and abdominal pain. It turns out that she has had some of these symptoms for up to 3 years, but has been significantly worse these last 4 days. She states that she has probably had a low grade temperature elevation but has not measured a fever. She has vomited multiple times but has not vomited blood. She denies a history of hepatitis or jaundice and denies dark urine or light stools currently. PAST MEDICAL HISTORY: 1. Childbirth by vaginal delivery. PAST SURGICAL HISTORY: 1. Repair of an umbilical hernia. 2. Tubal ligation. CURRENT MEDICATIONS: ALLERGIES: FAMILY HISTORY: Noncontributory. SOCIAL HISTORY: The patient lives with a female partner show is a mother. Does use marijuana routinely. Denies IV drugs of any kind. REVIEW OF SYSTEMS: There has been no weight loss. No chest pain, shortness of breath. No melenic stools or blood per rectum. She denies urinary symptoms. PHYSICAL EXAMINATION: VITAL SIGNS: Normotensive. GENERAL: The patient is awake, alert and in moderate distress. HEENT: Examination reveals the sclera to be nonicteric. Mucous membranes are somewhat dry. NECK: Without adenopathy. BACK: Without CVA tenderness. CHEST: Equal breath sounds bilaterally. ABDOMEN: Soft, tender mostly in the right upper and right lower quadrant. Bowel sounds are positive. There is no mass. No guarding. PELVIS AND RECTAL: Examinations are deferred. EXTREMITIES: Without clubbing, cyanosis or edema. LABORATORY: Elevated liver function tests with a normal amylase and lipase. Potassium is 2.8. White count is mildly elevated. Ultrasound reveals sludge without gallbladder wall thickening or pericholecystic fluid. There was mild tenderness over the gallbladder. CT scan reveals a normal appendix with no inflammatory changes or fluid in the abdomen. There is a mildly dilated common bile duct. IMPRESSION: 1. Cholelithiasis, rule out choledocholithiasis. 2. Possible mild acute cholecystitis. 3. Mild dehydration. 4. Hypokalemia. PLAN: Recommend rehydration. Continue antibiotics and reevaluate. If her liver function tests continue to become elevated, she will likely need transfer for ERCP. #[id number] [facility]
[2018-10-06] MEDS ORDERED: HYDROmorphone HCL INJ 2 MG/ML VIAL IV ONE (20:11)
[2018-10-06] MEDS ORDERED: NICOTINE PATCH 14 MG TD ONE (21:54)
[2018-10-06] MEDS: KCL 40MEQ/NS 1,000 ML IVS PRN (22:52)
[2018-10-07] MEDS ORDERED: SODIUM CHLORIDE 0.9% 100ML 100 ML IVPB ONE ×4 (00:59→19:44)
[2018-10-07] MEDS ORDERED: PIPERACILLIN/TAZOBACTAM 3.375 GM VIAL IVPB ONE ×4 (00:59→19:43)
[2018-10-07] MEDS: PIPERACILLIN/TAZOBACTAM 3.375 GM in SODIUM CHLORIDE 0.9% 100ML 100 ML IVPB SCH ×3 (01:26→16:48)
[2018-10-07] MEDS: KCL 40MEQ/NS 1,000 ML IVS PRN ×2 (02:19→06:36)
[2018-10-07] MEDS ORDERED: KETOROLAC TROMETHAMINE INJ 30 MG/ML VIAL IV PRN (06:35)
[2018-10-07] MEDS: HYDROmorphone HCL INJ 2 MG/ML VIAL IV PRN ×2 (06:42→22:21)
[2018-10-07] MEDS ORDERED: ENOXAPARIN SODIUM 40 MG/0.4 ML SYG SUBCU SCH (09:00)
[2018-10-07] MEDS: ONDANSETRON INJ 4 MG/2 ML VIAL IV PRN ×2 (09:07→18:42)
--- NOTE | 2018-10-07 15:28 | PN ---
DATE: 10/07/18 SUPERVISING PHYSICIAN: Sammy Paul M.D. SUBJECTIVE: The patient is lying in bed. She continues complaints of nausea. She has not had any emesis. She also has pain in that right upper quadrant. Otherwise no shortness of breath, diarrhea or chest pain. OBJECTIVE: VITAL SIGNS: Temperature 97.9, heart rate 55, blood pressure 98/65, respiratory rate 18, O2 sat 99% on room air. RESPIRATORY: Essentially clear to auscultation bilaterally. CARDIAC: Regular rate and rhythm. GASTROINTESTINAL: Abdomen is soft, nondistended. She is moderately tender in the right upper quadrant. Bowel sounds are positive. NEUROLOGIC: She is awake, alert and oriented times three. LABORATORY: WBCs have normalized to 10.3 with hemoglobin 12.7, hematocrit 36.6. There is no left shift on differential. Electrolytes are basically within normal limits with the exception of her calcium is slightly low at 8.1. Total bilirubin has improved to 1.2. Serum total protein is 5.7. All other labs and films have been reviewed via the EMR. ASSESSMENT: 1. Right upper quadrant pain secondary to biliary colic with concerns for cholelithiasis, need to rule out choledocholithiasis with mild acute cholecystitis. 2. Mild to moderate dehydration secondary to persistent nausea and vomiting. 3. Metabolic acidosis secondary to dehydration and persistent nausea and vomiting. 4. Elevated liver function tests with elevated bilirubin, AST and ALT, but normalized amylase and lipase, most likely due to persistent nausea and vomiting. 5. Leukocytosis secondary to stress response from nausea and vomiting, cannot rule out infectious process, but the leukocytosis is now normalized. 6. Electrolyte imbalance that included hypokalemia and hyponatremia in a patient with persistent nausea and vomiting. 7. History of esophagitis. 8. History of chronic tobacco abuse in the form of cigarette smoking. 9. Chronic use of illicit drugs to include marijuana. PLAN: I have advanced her diet to clear liquids. At this point she is still somewhat nauseated and will need to monitor that closely. Once she tolerates her clear liquid diet she will be advanced to a low fat diet and she needs to go home on a low fat diet. I have discussed her dietary needs after discharge. She will also need a HIDA Scan as an outpatient as well as following up with Dr. Steiner. I will recheck her labs in the morning and hopefully she can be discharged tomorrow with close followup with Dr. Steiner as well as outpatient testing. #[id number] [facility]
[2018-10-07] MEDS: PANTOPRAZOLE SODIUM IV 40 MG VIAL IV SCH (16:48)
[2018-10-08] MEDS: PIPERACILLIN/TAZOBACTAM 3.375 GM in SODIUM CHLORIDE 0.9% 100ML 100 ML IVPB SCH (01:10)
[2018-10-08] MEDS: HYDROmorphone HCL INJ 2 MG/ML VIAL IV PRN (02:21)
[2018-10-08 05:31] VITALS: BP 103/66; TEMP 97.6
[2018-10-08] MEDS: KCL 40MEQ/NS 1,000 ML IVS PRN (05:38)
[2018-10-08] MEDS ORDERED: SODIUM CHLORIDE 0.9% 100ML 100 ML IVPB ONE (07:27)
[2018-10-08] MEDS ORDERED: PIPERACILLIN/TAZOBACTAM 3.375 GM VIAL IVPB ONE (07:27)
[2018-10-08 07:51] VITALS: O2SAT 98
[2018-10-08] MEDS ORDERED: traMADol HCL 50 MG TAB PO PRN (08:39)
--- NOTE | 2018-10-09 09:52 | DS ---
SUPERVISING PHYSICIAN: Sammy Paul MD DISCHARGE DIAGNOSIS: 1. Right upper quadrant pain secondary to biliary colic with concerns for cholelithiasis, need to rule out choledocholithiasis with mild acute cholecystitis. 2. Mild to moderate dehydration secondary to persistent nausea and vomiting. 3. Metabolic acidosis secondary to dehydration and persistent nausea and vomiting. 4. Elevated liver function tests with elevated bilirubin, AST and ALT, but normalized amylase and lipase, most likely due to persistent nausea and vomiting. 5. Leukocytosis secondary to stress response from nausea and vomiting, cannot rule out infectious process, but the leukocytosis is now normalized. 6. Electrolyte imbalance that included hypokalemia and hyponatremia in a patient with persistent nausea and vomiting. 7. History of esophagitis. 8. History of chronic tobacco abuse in the form of cigarette smoking. 9. Chronic use of illicit drugs to include marijuana. HISTORY OF PRESENT ILLNESS: This is a 38-year-old female who came to the Emergency Room today with complaints of intractable emesis and abdominal pain that was located in the right upper quadrant. She was unable to keep anything down orally and had been seen in the Emergency Room the previous week. She has not had any similar symptoms in the past except for some issues with ovarian cysts and some nausea and vomiting associated with esophagitis. There were no complaints of fevers or diarrhea. She notes she does not have any chronic illnesses, does not take any medications but she does smoke marijuana occasionally. She have some blood-tinged emesis while throwing up. Her initial workup showed laboratory studies with leukocytosis 13,700 and a left shift with hemoglobin 16.4 and hematocrit 45.8. Her chemistries showed sodium of 133 and potassium 2.8. Anion gap was elevated at 21.8 with BUN of 18 and creatinine 0.9. Liver functions showed elevation with initial total bilirubin of 1.9, AST 64, ALT 83. Lipase and amylase were both normal. Urinalysis showed 100 of protein. Microscopic revealed 5 to 10 epithelials and 4+ bacteria, no white cells, no RBCs, small amount of mucus. Her initial CT of abdomen and pelvis showed the gallbladder was slightly distended containing large amount of sludge but no obvious stones or surrounding inflammatory changes. The common bile duct was noted to be dilated which had progressed from previous studies with no intrahepatic biliary dilation noted. There was no free fluid or inflammatory changes in the abdomen on current findings. The appendix appeared to be normal. There was note of a right ovary slightly enlarged from previous exam with a simple cyst, no free fluid in the pelvis. An ultrasound was then obtained of the right upper quadrant and gallbladder contained mostly sludge with no echogenic stones, no wall thickening or fluid but was tender with transducer pressure, common bile duct was noted to be normal caliber which could represent acalculous cholecystitis or gallbladder dyskinesia. There was no intrahepatic biliary dilation and liver and pancreas were unremarkable. There was no ascites and the right kidney appeared to have minimal cortical thinning with a 0.3 cm cyst in the right upper pole, otherwise unremarkable. Surgical consultation was obtained Dr. Steiner who recommended the patient be admitted for fluids and with possible cholecystitis, rule out choledocholithiasis with a possible mild acute cholecystitis. Her vital signs were stable. She was afebrile. She was placed in observation in stable condition. HOSPITAL COURSE: The patient was given IV fluids and hydrated. She was initially placed on bowel rest. Labs were rechecked the following morning and her diet was advanced. She was placed on Dilaudid for pain medication as well as given antiemetics. She was transitioned to oral pain medications. She was unable to tolerate a low-fat diet yesterday, but tolerated her breakfast without any problem. She had no further complaints of nausea or vomiting. She still continued to have some mild pain in her right upper quadrant, but it was relieved with tramadol. She was also placed on Zosyn. White count normalized. The patient will be discharged home today with close followup with Dr. Steiner for surgical consultation. LABORATORY: White count normalized to 7,600 with hemoglobin 11.6, hematocrit 33.4. There was no left shift on her differential. Electrolytes are basically within normal limits. She continued to have a slightly elevated bilirubin as well as AST and ALT, but her allegedly were within normal limits. RADIOLOGY: As per history of present illness. DISCHARGE PLAN: The patient will be discharged home in stable condition. It is recommended by Dr. Steiner that see him for followup for surgical consultation as well as to transition to a low fat diet. I have given her 2 additional days of Augmentin to take as well as some tramadol for pain. She is to return to the hospital for followup with Dr. Steiner for any problems or complications. DISCHARGE MEDICATIONS: 1. Tramadol. 2. Augmentin. #[id number] [facility]
== END 2018-10-08 10:30 | disposition home or self-care (01) | DRG 445 ==
LOC: ER 11:43 → MS 16:06
PROVIDERS: ADMIT Nurse Practitioner Family; ATTEND Nurse Practitioner Acute Care
DX: K80.00 Calculus of gallbladder with acute cholecystitis without obstruction (principal); K80.42 Calculus of bile duct with acute cholecystitis without obstruction; E87.2 Acidosis; E87.1 Hypo-osmolality and hyponatremia; E86.0 Dehydration; E87.6 Hypokalemia; R74.0 Nonspecific elevation of levels of transaminase and lactic acid dehydrogenase [LDH]; R74.8 Abnormal levels of other serum enzymes; F17.210 Nicotine dependence, cigarettes, uncomplicated; F12.90 Cannabis use, unspecified, uncomplicated

== ENCOUNTER → 2019-09-27 | Outpatient (CLI) | payer SELFPAY | LOC: RESP 09:48 | PROVIDERS: ATTEND Family Medicine | DX: R07.9 Chest pain, unspecified (principal) ==